=== PATIENT | female | born 1965 | race Caucasian/White ===

== ENCOUNTER → 2018-04-29 08:29 | Outpatient (REF) | payer OTHER, SELFPAY ==
[2018-04-29 12:44] LABS: ALT 21 U/L (12-78); AST 14 U/L (15-37); Albumin 3.8 g/dL (3.4-5.0); Alkaline Phosphatase 54 U/L (46-116); Anion Gap 10.1 mmol/L (3-11); BUN 18 mg/dL (7-18); Bilirubin, Total 0.2 mg/dL (0.2-1.0); CO2 26.9 mmol/L (21.0-32.0); Calcium 8.9 mg/dL (8.5-10.1); Chloride 105 mmol/L (98-107); Cholesterol 161 mg/dL (50-200); Glucose 88 mg/dL (70-100); HDL Cholesterol 41 mg/dL (40-60); LDL CHOLESTEROL 114 mg/dL (<100); Potassium 4.6 mmol/L (3.5-5.1); Sodium 142 mmol/L (136-145); Total Protein 7.2 g/dL (6.4-8.2); Triglyceride 73 mg/dL (30-150)
== END ==
LOC: NCHCN 08:29
PROVIDERS: PCP Family Medicine; Visit Provider Nurse Practitioner
DX: Z00.00 Encounter for general adult medical examination without abnormal findings
CPT/HCPCS: 80053; 80061; 83721

== ENCOUNTER 2019-11-07 11:46 | Outpatient (REF) | payer OTHER, SELFPAY ==
[2019-11-07 19:47] LABS: ALT 24 U/L (14-59); AST 14 U/L (15-37); Albumin 3.9 g/dL (3.4-5.0); Alkaline Phosphatase 60 U/L (46-116); Anion Gap 9.3 mmol/L (3-11); BUN 17 mg/dL (7-18); Bilirubin, Total 0.2 mg/dL (0.2-1.0); CO2 26.7 mmol/L (21.0-32.0); CREATININE 0.68 mg/dL (0.55-1.02); Calcium 9.2 mg/dL (8.5-10.1); Calculated LDL 103 mg/dL (<100); Chloride 104 mmol/L (98-107); Cholesterol 162 mg/dL (<200); Glucose 102 mg/dL (74-106); HDL Cholesterol 38 mg/dL (40-60); Potassium 4.6 mmol/L (3.5-5.1); Sodium 140 mmol/L (136-145); TSH (W/Ref FT4) 2.71 uIU/mL (0.36-3.74); Total Protein 7.1 g/dL (6.4-8.2); Triglyceride 107 mg/dL (<150)
[2019-11-07 20:06] LABS: Vitamin D 25 Total 13.6 ng/ml (30-100)
== END 2019-11-07 12:06 ==
LOC: NCHCN 11:46
PROVIDERS: PCP Family Medicine; Visit Provider Nurse Practitioner
DX: I10 Essential (primary) hypertension (principal); E66.9 Obesity, unspecified; Z13.21 Encounter for screening for nutritional disorder
CPT/HCPCS: 80053; 80061; 82306; 84443

== ENCOUNTER 2020-03-12 01:44 | Outpatient (CLI) | payer OTHER, SELFPAY ==
--- NOTE | 2020-03-12 | DI.MAMMO_ITS ---
EXAM: MG MAMMO SCREENING CLINICAL HISTORY: SCREENING, Z12.39 TECHNIQUE: Bilateral full field digital CC and MLO mammographic images were obtained with 3D tomosyn thesis and utilizing computer aided detection (CAD). COMPARISON: Available for comparison. FINDINGS: Masses/Architectural Distortion: None seen. Microcalcifications: No suspicious pleomorphic-type are seen. Skin Thickening/Nipple Retraction: None. IMPRESSION: 1. No significant interval change with no specific features of malignancy noted. 2. Unless there is more urgent need, screening mammography is recommended, as per [employer] guidelines. BI-RADS Category 1 - Negative Breast Density - Category B - Scattered areas of fibroglandular density A negative radiographic report should not delay biopsy if a dominant or clinically suspicious mass is present. Up to ten percent of cancers are not identified on mammography. A negative report may reinforce clinical impression. Adenosis and dense breasts may obscure an underlying neoplasm. False positive reports average 6 to 10%. Patient will receive a letter notifying them of these results.
== END 2020-03-12 02:04 ==
PROVIDERS: PCP Family Medicine; Visit Provider Nurse Practitioner
DX: Z12.31 Encounter for screening mammogram for malignant neoplasm of breast (principal)
CPT/HCPCS: 77063; 77067

== ENCOUNTER 2020-03-12 12:08 | Outpatient (REF) | payer OTHER, SELFPAY ==
--- NOTE | 2020-03-12 11:15 | PAPFT_PTH ---
PATIENT: Callie Perez LOC: [facility] U#:[id number] AGE/SX: 55/F ROOM: RE03/12/[address]: Shona Bang NP : 1965 BED: DIS: 03/12/2020 SPEC #: [id number] RECD: 03/12/20 12:49 STATUS: FLORIN RECaleb #: [id number] GABBY: 03/12/20 11:[address]: Shona Bang NP DEPT: [facility] [place] Cytology RECD BY: Leah Polanco ENTERED: 03/12/20 12:49 SP TYPE: PAPFT OTHR DR: Nai Mendez Tissues: 1 - CX/ENDOCX FOR PAP SMEARS Procedures: PAP THIN PREP/[facility] Screening Comments: [id number] (CHLAMYDIA/GC) (UNSATISFACTORY FOR EVALUATION)
[2020-03-14 13:25] LABS: Chlamydia Result Negative (Negative); GC Result Negative (Negative)
== END 2020-03-12 12:28 ==
LOC: LBN 12:08
PROVIDERS: PCP Family Medicine; Visit Provider Nurse Practitioner Women's Health
DX: Z11.3 Encounter for screening for infections with a predominantly sexual mode of transmission (principal); Z12.4 Encounter for screening for malignant neoplasm of cervix; Z11.51 Encounter for screening for human papillomavirus (HPV); R87.615 Unsatisfactory cytologic smear of cervix
CPT/HCPCS: 87491; 87591; 88142

== ENCOUNTER 2020-03-13 01:37 | Outpatient (CLI) | payer OTHER, SELFPAY ==
--- NOTE | 2020-03-13 09:58 | DI.RAD_ITS ---
EXAM: 2D digital imaging was performed. CLINICAL HISTORY: ? broken IUD, ?perforation, IUD SURVEILLANCE, Z30.431. COMPARISON: No exams were available for comparison TECHNIQUE: Supine views of the abdomen performed. FINDINGS: There is an intrauterine device seen in the pelvis. There is a curvilinear density inferior to the r ight sacroiliac joint which may be vascular in nature. No definite radiopaque foreign body is seen i n the abdomen. If there is continued concern a CT scan of the abdomen and pelvis may be obtained. T he bowel gas pattern shows no evidence of obstruction. Bones are intact. DATA REPOSITORY: RADIATION DOSE DELIVERED:
== END 2020-03-13 01:57 ==
PROVIDERS: PCP Family Medicine; Visit Provider Nurse Practitioner Women's Health
DX: Z30.431 Encounter for routine checking of intrauterine contraceptive device (principal)
CPT/HCPCS: 74018

== ENCOUNTER 2020-04-24 16:06 | Outpatient (REF) | payer OTHER, SELFPAY ==
--- NOTE | 2020-04-24 15:40 | PAPFT_PTH ---
PATIENT: Callie Perez LOC: [facility] U#:[id number] AGE/SX: 55/F ROOM: RE04/24/[address]: Shona Bang NP : 1965 BED: DIS: 04/24/2020 SPEC #: [id number] RECD: 04/24/20 18:37 STATUS: FLORIN RECaleb #: [id number] GABBY: 04/24/20 15:[address]: Shona Bang NP DEPT: [facility] Cytology RECD BY: Leah Polanco ENTERED: 04/24/20 18:37 SP TYPE: PAPFT OTHR DR: Nai Mendez Tissues: 1 - CX/ENDOCX FOR PAP SMEARS Procedures: PAP THIN PREP/UVM Screening HPV DNA PROBE Comments: [id number]
== END 2020-04-24 16:26 ==
LOC: LBN 16:06
PROVIDERS: PCP Family Medicine; Visit Provider Nurse Practitioner Women's Health
DX: Z12.4 Encounter for screening for malignant neoplasm of cervix (principal); Z11.51 Encounter for screening for human papillomavirus (HPV)
CPT/HCPCS: 88142; 87624

== ENCOUNTER 2020-11-05 21:35 | Outpatient (REF) | payer OTHER, SELFPAY ==
[2020-11-05 19:10] LABS: ALT 29 U/L (14-59); AST 17 U/L (15-37); Albumin 3.7 g/dL (3.4-5.0); Alkaline Phosphatase 58 U/L (46-116); Anion Gap 9.8 mmol/L (3-11); BUN 16 mg/dL (7-18); Bilirubin, Total 0.2 mg/dL (0.2-1.0); CO2 28.2 mmol/L (21.0-32.0); CREATININE 0.7 mg/dL (0.55-1.02); Calcium 9.4 mg/dL (8.5-10.1); Calculated LDL 121 mg/dL (<100); Chloride 103 mmol/L (98-107); Cholesterol 174 mg/dL (<200); Glucose 97 mg/dL (74-106); HDL Cholesterol 35 mg/dL (40-60); Potassium 3.8 mmol/L (3.5-5.1); Sodium 141 mmol/L (136-145); Total Protein 7.6 g/dL (6.4-8.2); Triglyceride 92 mg/dL (<150)
[2020-11-05 19:26] LABS: Vitamin D 25 Total 22.7 ng/ml (30-100)
[2020-11-05 19:31] LABS: Hemoglobin A1C 6.3 % (<5.7)
== END 2020-11-05 21:36 | disposition home or self-care (01) ==
LOC: NCHCN 21:35
PROVIDERS: PCP Family Medicine; Visit Provider Nurse Practitioner
DX: R73.03 Prediabetes (principal); E55.9 Vitamin D deficiency, unspecified; I10 Essential (primary) hypertension
CPT/HCPCS: 80053; 80061; 82306; 83036

== ENCOUNTER 2021-01-08 03:39 | Outpatient (CLI) | payer OTHER, SELFPAY ==
[2021-01-08] MEDS: Albuterol HFA 18 GM 200 PUFF INH IH (11:39)
[2021-01-08] MEDS: Inhaler, Assist Device 1 EACH MC (11:40)
--- NOTE | 2021-01-09 12:55 | W.PFT ---
Date of service: 01/08/21 Time of Service: 10:21 Pulmonary Function Test Result Interpretation Spirometry: Mild obstructive airways disease, no bronchodilator response Lung Volumes: No evidence of restriction. Mild hyperinflation Diffusion Capacity: Mildly reduced even when corrected to alveolar volume Airway Pressure: Elevated Impression Mild obstructive airways disease with no significant bronchodilator response this is associated with mild hyperinflation and mild diffusion defect. There is elevated airways resistance Clinical Correlation therefore is recommended.
== END 2021-01-08 03:40 | disposition home or self-care (01) ==
PROVIDERS: PCP Family Medicine; Visit Provider Nurse Practitioner
DX: R05 Cough (principal); Z86.16 Personal history of COVID-19; R06.09 Other forms of dyspnea
CPT/HCPCS: 94060; 94726; 94729

== ENCOUNTER 2021-04-15 00:55 | Outpatient (CLI) | payer OTHER, SELFPAY ==
--- NOTE | 2021-04-15 | DI.MAMMO_ITS ---
Exam(s) MAMMO SCREENING EXAM: MAMMO SCREENING CLINICAL HISTORY: SCREENING, Z12.39. TECHNIQUE: Bilateral full field digital CC and MLO mammographic images were obtained with 3D tomosyn thesis and utilizing computer aided detection (CAD). COMPARISON: Prior mammograms dating back to 2014, the most recent being February 2020. Her sister was diagnosed with breast cancer at age 50. FINDINGS: There are no CAD designations There are no new spiculated masses nor malignant appearing microcalcification groups. There is no significant architectural distortion nor skin thickening-retraction. IMPRESSION: No radiographic evidence of malignancy. BI-RADS Category 1 - Negative Breast Density - Category B - Scattered areas of fibroglandular density Breast density Category C or D implies that the patient has dense breast tissue. Dense breast tissue can make it harder to find cancer on a mammogram. Dense breast tissue is also associated with an incr eased risk of breast cancer. This information about the result of the mammogram report was provided to the patient to raise their awareness. Use this report when you speak with the patient about their risks for breast cancer, which includes their family history. At that time, you may recommend additional screening tests (Ultrasoun d or MRI) as these tests may add significant information. A negative radiographic report should not delay biopsy if a dominant or clinically suspicious mass is present. Up to ten percent of cancers are not identified on mammography. A negative report may reinforce clinical impression. Adenosis and dense breasts may obscure an underlying neoplasm. False positive reports average 6 to 10%. Patient will receive a letter notifying them of these results.
== END 2021-04-15 01:15 ==
PROVIDERS: PCP Family Medicine; Visit Provider Nurse Practitioner
DX: Z12.31 Encounter for screening mammogram for malignant neoplasm of breast (principal)
CPT/HCPCS: 77063; 77067

== ENCOUNTER 2021-09-20 18:45 | Outpatient (REF) | payer BC, SELFPAY ==
[2021-09-20 21:28] LABS: Anion Gap 7.1 mmol/L (3-11); BUN 15 mg/dL (7-18); CO2 30.9 mmol/L (21.0-32.0); CREATININE 0.9 mg/dL (0.55-1.02); Calcium 9.6 mg/dL (8.5-10.1); Chloride 100 mmol/L (98-107); Glucose 94 mg/dL (74-106); Potassium 3.5 mmol/L (3.5-5.1); Sodium 138 mmol/L (136-145); TSH (W/Ref FT4) 1.98 uIU/mL (0.36-3.74)
[2021-09-23 10:05] LABS: Hepatitis C Ab w Rflx HCV PCR Negative (Negative)
[2021-09-23 10:21] LABS: HIV-1/2 Ag & Ab Screen Negative (Negative)
== END 2021-09-20 18:46 | disposition home or self-care (01) ==
LOC: NCHCN 18:45
PROVIDERS: PCP Family Medicine; Visit Provider Family Medicine
DX: I10 Essential (primary) hypertension (principal); R73.03 Prediabetes; Z00.00 Encounter for general adult medical examination without abnormal findings; Z11.4 Encounter for screening for human immunodeficiency virus [HIV]; Z11.59 Encounter for screening for other viral diseases
CPT/HCPCS: 80048; 86803; 87389; 83036; 84443

== ENCOUNTER 2021-10-22 18:56 | Outpatient (REF) | payer BC, SELFPAY ==
[2021-10-22 20:30] LABS: Anion Gap 9.1 mmol/L (3-11); BUN 17 mg/dL (7-18); CO2 29.9 mmol/L (21.0-32.0); CREATININE 0.8 mg/dL (0.55-1.02); Calcium 9.7 mg/dL (8.5-10.1); Chloride 100 mmol/L (98-107); Glucose 86 mg/dL (74-106); Potassium 3.4 mmol/L (3.5-5.1); Sodium 139 mmol/L (136-145)
== END 2021-10-22 18:57 | disposition home or self-care (01) ==
LOC: LBN 18:56
PROVIDERS: PCP Family Medicine; Visit Provider Family Medicine
DX: I10 Essential (primary) hypertension (principal)
CPT/HCPCS: 80048

== ENCOUNTER 2021-12-17 17:36 | Outpatient (REF) | payer BC, SELFPAY ==
[2021-12-17 17:32] LABS: BUN 19 mg/dL (7-18); CREATININE 0.7 mg/dL (0.55-1.02); Calcium 9.5 mg/dL (8.5-10.1); Chloride 103 mmol/L (98-107); Glucose 108 mg/dL (74-106); Sodium 142 mmol/L (136-145)
== END 2021-12-17 17:37 | disposition home or self-care (01) ==
LOC: NCHCN 17:36
PROVIDERS: PCP Family Medicine; Visit Provider Family Medicine
DX: E87.6 Hypokalemia (principal)
CPT/HCPCS: 80048

== ENCOUNTER → 2022-06-25 00:56 | Outpatient (CLI) | payer BC, SELFPAY ==
--- NOTE | 2022-06-25 17:00 | DI.MAMMO_ITS ---
Exam(s) MAMMO SCREENING EXAM: MAMMO SCREENING CLINICAL HISTORY: SCREENING, Z12.39 TECHNIQUE: Mammograms were interpreted according to the usual protocol including computer analysis w [employer] CAD system, tomosynthesis and C-view imaging. COMPARISON: FINDINGS: The breasts are of moderate density with fairly symmetrical distribution of fibroglandular tissue. N o dominant mass or clumped microcalcification is identified in either breast. The current examinatio n is compared with previous examinations including April 2021 and there has been no gross interval c hange in appearance in comparison with the prior studies. IMPRESSION: No specific evidence of malignancy at this time. Routine screening examinations are suggested at yea rly intervals due to the family history of breast carcinoma. BI-RADS Category 1 - Negative Breast Density - Category B - Scattered areas of fibroglandular density
== END ==
PROVIDERS: PCP Family Medicine; Visit Provider Nurse Practitioner Family
DX: Z12.31 Encounter for screening mammogram for malignant neoplasm of breast (principal)
CPT/HCPCS: 77063; 77067

== ENCOUNTER 2022-07-25 07:44 | Day surgery (SDC) | payer BC, SELFPAY ==
--- NOTE | 2022-07-25 06:29 | HPE_ITS ---
Assessment and Plan Assessment and plan (1) Encounter for colorectal cancer screening: Status: Acute Assessment and plan: Ms Perez is a pleasant 57-year-old female who was seen in the office for a screening colonoscopy. She denies any melena, hematochezia, abdominal pain, unintentional weight loss, change in bowel habits or family history of colon cancer. Risks, benefits and complications have been reviewed. Complications include but are not limited to bleeding, pain, perforation, missed small lesion/polyp, sore throat, aspiration and adverse reaction to the medications. Questions were entertained and answered to their satisfaction and they wished to proceed. No guarantees were given or implied. Proceed with colonoscopy under sedation History of Present Illness Narrative: Pt seen at the request of PCP regarding colon cancer screening. Pt has never had a colon cancer screening before.? Denies problems with constipation, diarrhea.? No pain or difficulty with bowel movements.? Denies rectal bleeding.? There is no family history of any colon cancer. Sister had polyps.? ? Pt has not had any weight loss.? Their appetite is good.? No heart, lung, or kidney problems. Occ. ? heartburn or indigestion. No prior colo-rectal surgery.? No prior SAFIA.? No problems with anesthesia in the past. Review of Systems All systems reviewed & are unremarkable except as noted in HPI and below PFSH All Active Problems Encounter for colorectal cancer screening (Acute) Depression (Chronic) BMI 40.0-44.9, adult (Acute) Vitamin D deficiency (Acute) Prediabetes (Acute) Hypertension (Chronic) Migraine (Chronic) IUD surveillance (Acute 03/12/20) Mirena Medical History Allergic rhinitis Family history of breast cancer Pain in left wrist Surgical History [place] teeth removed Family History Sister Breast cancer Thyroid disease Mother Diabetes Social History Smoking/Tobacco Use Status: Former Tobacco Use Quit Date: 09/14/79 Smoking risk assessment performed?: Yes Alcohol Intake: current Alcohol Intake frequency: holidays/special occasions only Alcohol type: beer and wine Drug use: Never Substance use type: does not use Do you feel safe at home: Yes Do you feel safe in your relationship?: Yes Female Reproductive History Menstrual control method: progestin IUCD History History 2 Para 1 Hx # Term Pregnancies Multiple births Hx # Pregnancies Ectopic pregnancies AB induced Hx Number of Living Children AB spontaneous Meds Allergies and Home Medications Allergies Allergy/AdvReac Type Severity Reaction Status Date / Time No Known Allergies Allergy Verified 07/25/22 08:04 Home Medications Medication Instructions Recorded Confirmed Type cholecalciferol (vitamin D3) 100 100 mcg PO DAILY 03/12/20 07/25/22 History mcg (4,000 unit) tablet levonorgestrel 20 mcg/24 hours (8 1 device intrauterine ONCE 03/12/20 07/23/22 History yrs) 52 mg intrauterine device (Mirena) cetirizine 10 mg capsule (All Day 10 mg PO DAILY PRN 10/31/21 07/25/22 History Allergy (cetirizine)) chlorthalidone 25 mg tablet 25 mg PO DAILY 10/31/21 07/25/22 History citalopram 20 mg tablet 20 mg PO DAILY 10/31/21 07/25/22 History losartan 100 mg tablet 100 mg PO HS 10/31/21 07/25/22 History sumatriptan succinate 100 mg 100 mg PO ONCE 10/31/21 07/25/22 History tablet (Imitrex) bisacodyl 5 mg tablet,delayed 5 mg PO ONCE colonscopy bowel prep 06/23/22 07/25/22 Rx release (Dulcolax (bisacodyl)) #4 tabs omeprazole 20 mg capsule,delayed 20 mg PO DAILY PRN 06/23/22 07/25/22 History release polyethylene glycol 3350 17 238 g PO ONCE colonoscopy prep 06/23/22 07/25/22 Rx gram/dose oral powder #238 grams Exam HENMT Head: normocephalic and atraumatic Resp Effort & Inspection: normal respiratory effort Auscultation: clear to auscultation bilaterally Cardio Rate: regular rate Rhythm: regular rhythm
--- NOTE | 2022-07-25 06:29 | W.COLOREPORT ---
Date of service: 07/25/22 Time of Service: : Colonoscopy Report Date of procedure: 07/25/22 Pre-op diagnosis general: colon cancer screening Post-op diagnosis procedure note: other (polyps and diverticulosis) Procedure: Colonoscopy with polypectomy Surgeon: Em Carpenter Anesthesia Type: General:No Airway Estimated blood loss (mL): 3 Pathology: other (cecal polyp, ascending polyp and descending polyp) Complications: None Disposition: same day Indications: Ms Perez is a pleasant 57-year-old female who was seen in the office for a screening colonoscopy. She denies any melena, hematochezia, abdominal pain, unintentional weight loss, change in bowel habits or family history of colon cancer. Risks, benefits and complications have been reviewed. Complications include but are not limited to bleeding, pain, perforation, missed small lesion/polyp, sore throat, aspiration and adverse reaction to the medications. Questions were entertained and answered to their satisfaction and they wished to proceed. No guarantees were given or implied. Proceed with colonoscopy under sedation Prep: Miralax/Dulcolax Procedure Start Time: :20 Procedure End Time: :37 Retraction Time: 13 minutes Findings: 3 small polyps moderate diverticulosis Procedure Description: After informed consent was obtained the patient was taken to the procedure room and placed in a left decubitous position. Monitors were applied and a time out was done. The patients name, date of , procedure, allergies to medications and metal in their body was reviewed. The patient was then sedated. Once sedated and comfortable a rectal exam was done. External exam was normal. Internal exam revealed a normal sphincter tone and no palpable masses. The scope was then introduced and retro-flexed. No internal hemorrhoids, polyps or masses were identified on retro-flexion. The scope was then advanced to the cecum without difficulty. The ileocecal vlave and appendiceal orifice were identified. The prep was good. The scope was then slowly retracted over 13 minutes back into the rectum. Polyps were removed with cold forceps in the cecum, ascending colon and descending colon. There was moderate descending and sigmoid diverticulosis noted. The scope was removed and the patient was woken up and taken back to Same day surgery in stable condition. The patient tolerated the procedure well and there were no immediate complications.
--- NOTE | 2022-07-25 06:34 | W.PM.DSUDISC ---
Date of service: 07/25/22 Time of Service: 09:20 Discharge Plan Disposition Patient Disposition: HOME Condition: Good Discharge Details Reason For Visit: colonoscopy Attending Provider: Em Carpenter Primary Care Provider: TANESHA CROWLEY Home Meds and New Rx's Prescriptions: Continued cholecalciferol (vitamin D3) 100 mcg (4,000 unit) tablet 100 mcg PO DAILY Mirena 20 mcg/24 hours (5 yrs) 52 mg intrauterine device 1 device IY ONCE Rx Instructions: as a single dose losartan 100 mg tablet 100 mg PO HS chlorthalidone 25 mg tablet 25 mg PO DAILY All Day Allergy (cetirizine) 10 mg capsule 10 mg PO DAILY PRN citalopram 20 mg tablet 20 mg PO DAILY sumatriptan succinate [Imitrex] 100 mg tablet 100 mg PO ONCE omeprazole 20 mg capsule,delayed release(DR/EC) 20 mg PO DAILY PRN Discontinued polyethylene glycol 3350 17 gram/dose powder 238 g PO ONCE Qty: 238 0RF Rx Instructions: take per colonoscopy instructions bisacodyl [Dulcolax (bisacodyl)] 5 mg tablet,delayed release (DR/EC) 5 mg PO ONCE Qty: 4 0RF Rx Instructions: take per colonoscopy instructions Discharge Instructions Instructions: Colorectal Polyps (DC), Diverticulosis (DC) Additional Instructions: Findings: 3 small polyps Diverticulosis Follow up: most likely 5 years Please call if you develop: fevers >101.5 Nausea or Vomiting Abdominal pain that is not transient Rectal bleeding that is more then a tbsp A hard abdomen and inability to pass gas DAY SURGERY UNIT POST ENDOSCOPY INSTRUCTIONS Instructions for everyone who is given Anesthesia: For your safety, please do the following for the next 24 Hours: a. Do not drive or operate dangerous equipment b. Do not drink alcohol beverages or use any recreational drugs for the first 24 hours or while taking pain medications. The medications in your body may have a reaction that can be dangerous. c. Do not make any important decisions or sign any important papers 1. Generally there are no restrictions on your activity after a day or so has gone by, but you may feel a bit fatigued for a few days. 2. After you arrive home you may have a light meal and return to a normal diet as you can tolerate it without feeling sick to your stomach. 3. After surgery, you may feel pain or discomfort. This should be only transient, but if it persists please contact your doctor. 4. If there are any questions regarding the findings of your procedure, please feel free to contact your doctor. 6. If you are unable to contact your doctor with a problem, contact the hospital at [phone]. 7. Continue all your regular medications unless directed otherwise. I understand the above instructions and have no questions. Signature of Patient or Responsible Adult Escort Date/Time Name of Responsible Adult Escort Signature of Nurse Date/Time Activity:: Activity as Tolerated Diet:: high fiber Discharge Orders Discharge Orders: Discharge Order (Routine); Ordered 07/25/22 Ordered By: Em Carpenter DS: Diagnosis Discharge Diagnosis (1) Encounter for colorectal cancer screening: Status: Acute
[2022-07-25 08:13] VITALS: BP 156/89; PULSE 95; RESP 18; TEMP 36.4; O2SAT 96
--- NOTE | 2022-07-25 08:34 | ANES.PREOP_ITS ---
General Info Date of Service Date Performed: 07/25/22 Height: 5 ft 11 in Weight: 154.9 kg Body Mass Index (BMI): 47.6 Surgical Procedure: Operation Date: 07/25/22 09:05 Proposed Procedure Side Surgeon p Colonoscopy Em Carpenter MD Meds Allergies and Home Medications Allergies Allergy/AdvReac Type Severity Reaction Status Date / Time No Known Allergies Allergy Verified 07/25/22 08:04 Home Medication Medication Instructions Recorded cholecalciferol (vitamin D3) 100 100 mcg PO DAILY 03/12/20 mcg (4,000 unit) tablet levonorgestrel 20 mcg/24 hours (8 1 device intrauterine ONCE 03/12/20 yrs) 52 mg intrauterine device (Mirena) cetirizine 10 mg capsule (All Day 10 mg PO DAILY PRN 10/31/21 Allergy (cetirizine)) chlorthalidone 25 mg tablet 25 mg PO DAILY 10/31/21 citalopram 20 mg tablet 20 mg PO DAILY 10/31/21 losartan 100 mg tablet 100 mg PO HS 10/31/21 sumatriptan succinate 100 mg 100 mg PO ONCE 10/31/21 tablet (Imitrex) bisacodyl 5 mg tablet,delayed 5 mg PO ONCE colonscopy bowel prep 06/23/22 release (Dulcolax (bisacodyl)) #4 tabs omeprazole 20 mg capsule,delayed 20 mg PO DAILY PRN 06/23/22 release polyethylene glycol 3350 17 238 g PO ONCE colonoscopy prep 06/23/22 gram/dose oral powder #238 grams Current Visit Medications: Current Medications Generic Name Dose Route Start Last Admin Trade Name Braydonq PRN Reason Stop Dose Admin Hyoscyamine Sulfate 0.125 mg 07/25/22 06:35 Hyoscyamine 0.125 Mg Sl/Oral/Chew SL DIRECTED PRN Ringer's Solution 1,000 mls @ 80 mls/hr 07/25/22 06:00 IV 08/23/22 23:59 [facility] IV Miscellaneous Supplies 1 each 07/25/22 06:00 Iv Access IV 08/23/22 23:59 DIRECTED [facility] Ondansetron HCl 4 mg 07/25/22 06:35 Ondansetron 4 Mg/2 Ml Vial IVP Q4H PRN PRN Nausea / Vomiting Sodium Chloride 0 ml 07/25/22 06:00 Normal Saline Flush 10 Ml Syr IV 08/23/22 23:59 PRN PRN Sodium Chloride 0 ml 07/25/22 06:00 Normal Saline 10 Ml Vial IJ 08/23/22 23:59 DIRECTED PRN Sterile Water 0 ml 07/25/22 06:00 Water,Injection,Sterile 10 Ml Vial IJ 08/23/22 23:59 DIRECTED PRN PFSH Active Problems Active Problems: Problem Status Onset Code Encounter for colorectal cancer screening Z12.11, Z12.12 Depression F32.A BMI 40.0-44.9, adult Z68.41 Vitamin D deficiency E55.9 Prediabetes R73.03 Hypertension I10 Migraine G43.909 IUD surveillance 03/12/20 Z30.431 Medical History Medical History Allergic rhinitis Family history of breast cancer Pain in left wrist Surgical History Surgical History [place] teeth removed Tobacco Smoking/Tobacco Use Status: Former Tobacco Use Alcohol Alcohol Intake: current Alcohol intake frequency: holidays/special occasions only Alcohol type: beer and wine Substance Use Substance use: Never Substance use type: does not use Prental History History 2 Para 1 Hx # Term Pregnancies Multiple births Hx # Pregnancies Ectopic pregnancies AB induced Hx Number of Living Children AB spontaneous Vital Signs and Lab Results Vital Signs Most Recent Vital Signs in EMR: Most Recent Vital Signs Temp Pulse Resp BP Pulse Ox 36.4 C L 95 H 18 156/89 H 96 07/25/22 08:13 07/25/22 08:13 07/25/22 08:13 07/25/22 08:13 07/25/22 08:13 Lab Results Blood Type / Crossmatch: No Data to Display Complete Blood Count: No Data to Display Complete Metabolic Panel: No Data to Display Liver Function Panel: No Data to Display Coagulation Panel: No Data to Display Cardiac Panel: No Data to Display Arterial Blood Gas: No Data to Display Venous Blood Gas: No Data to Display Pancreas Panel: No Data to Display Thyroid Panel: No Data to Display Infectious Disease: No Data to Display Blood Cultures: No Data to Display Toxicology Panel: No Data to Display Anesthesia Assessment and Plan Anesthesia History Personal History: No History of Anesthesia Complications Family History: No Family History of Anesthesia Complications Exercise Tolerance Exercise Tolerance: Metabolic Equivalents>4 Pertinent Negatives Pertinent Negatives: No Symptoms of GERD Cardiac & Pulmonary Exam Cardiac Exam: Normal S1/S2 Heart Sounds Pulmonary Exam: Clear Bilateral Breath Sounds Implantable Cardiac Device Does patient have a Pacemaker or an ICD?: No Airway Exam Known Difficult Airway: No Mallampati Class: 4 Mouth Opening: Normal (> 3cm) Thyromental Distance: Greater than 3 cm Neck Range of Motion: Full ROM Neck Circumference: Thick Teeth Condition: Normal Dentition ASA Classification ASA Score: ASA 3 Emergency Case?: No NPO Status NPO Status: NPO Clears >2 hours, Solids >8 hours Anesthesia Plan Resuscitation Status: Full Code Anesthesia Technique: General Anesthesia Airway Planned: Natural Airway Monitors Used: Standard Monitors
[2022-07-25 08:56] VITALS: BMI 47.6
[2022-07-25] MEDS: Lactated Ringers 1,000 ML 80 ML IV (09:13)
--- NOTE | 2022-07-25 09:26 | BOWEL_PTH ---
PATIENT: Callie Perez LOC: [facility] U#:[id number] AGE/SX: 57/F ROOM: RE07/25/[address]: Em Carpenter MD : 1965 BED: DIS: 07/25/2022 SPEC #: [id number] RECD: 07/25/22 12:51 STATUS: FLORIN REaCleb #: [id number] GABBY: 07/25/22 09:[address]: Em Carpenter DEPT: Surgical Specimen RECD BY: Leah Polanco ENTERED: 07/25/22 12:52 SP TYPE: Bowel OTHR DR: TANESHA CROWLEY, CONTACT LENS FLASHING PUNCHER Tissues: 1 - BIOPSY BOWEL 2 - BIOPSY BOWEL 3 - BIOPSY BOWEL Procedures: GROSS AND MICRO LEVEL 4 Comments: [id number]
[2022-07-25 09:48] VITALS: BP 109/54; PULSE 81; RESP 18; TEMP 36.9; O2SAT 93
--- NOTE | 2022-07-25 10:10 | W.ANESPOSTOP ---
Postoperative Evaluation Date, Time and Location Date Performed: 07/25/22 Time Performed: 09:55 Patient Location: Emergency Department Vital Signs Most Recent Imported Vital Signs: Most Recent Vital Signs Temp Pulse Resp BP Pulse Ox 36.9 C 81 18 109/54 L 93 07/25/22 09:48 07/25/22 09:48 07/25/22 09:48 07/25/22 09:48 07/25/22 09:48 Pain Score Most Recent Pain Score: Most Recent Pain Score Pain Level 0 07/25/22 09:48 Assessment Mental Status: Awake (Alert & Oriented to Patient Baseline) Airway and Respiratory Function: Patent airway with normal (patient baseline) respiratory exam Cardiovascular Function: Hemodynamically Stable Hydration Status: Adequately Hydrated Nausea & Vomiting: No Nausea or Vomiting Pain: Pt. Denies Any Pain Peripheral Nerve Block: Patient did not receive a nerve block
[2022-07-25 10:15] VITALS: BP 128/89; PULSE 77; RESP 16; TEMP 36; O2SAT 96
== END 2022-07-25 10:39 | disposition home or self-care (01) ==
PROVIDERS: PCP Nurse Practitioner Family; Visit Provider Surgery
PROC: 0DJD8ZZ Inspection of Lower Intestinal Tract, Via Natural or Artificial Opening Endoscopic (ICD-10-PCS; CPT 45378; principal; 2022-07-25 09:00)
DX: Z12.11 Encounter for screening for malignant neoplasm of colon (principal); K63.5 Polyp of colon; K57.30 Diverticulosis of large intestine without perforation or abscess without bleeding
CPT/HCPCS: 45380; 88305; J2704

== ENCOUNTER 2022-08-14 16:19 | Outpatient (REF) | payer BC, SELFPAY ==
[2022-08-14 18:24] LABS: Abs Immature Grans 0.02 10^3/uL (0.0-0.06); Absolute Basophil Count 0.04 10^3/uL (0.0-0.2); Absolute Eosinophil Count 0.14 10^3/uL (0.0-0.7); Absolute Lymphocyte Count 1.98 10^3/uL (1.2-3.4); Absolute Monocyte Count 0.57 10^3/uL (0.1-0.8); Absolute Neutrophil Count 4.22 10^3/uL (1.2-6.7); Basophils % 0.6; HCT 42.9 % (36.0-46.0); HGB 14.1 g/dL (11.2-15.7); Immature Grans % 0.3; Lymphocytes % 28.4; MCH 27.9 pg (27.0-33.0); MCHC 32.9 % (32.0-36.0); MCV 85 fL (80-95); Monocytes % 8.2; Neutrophils % 60.5; Platelet Count 266 10^3/uL (130-400); RBC 5.05 10^6/uL (3.93-5.22); RDW 13.6 % (11.7-14.6); WBC 6.97 10^3/uL (4.4-10.8)
[2022-08-14 18:40] LABS: Hemoglobin A1C 6.3 % (<5.7)
[2022-08-14 19:05] LABS: Vitamin D 25 Total 22.8 ng/mL (30-100)
[2022-08-14 19:08] LABS: ALT 26 U/L (14-59); AST 21 U/L (15-37); Albumin 3.8 g/dL (3.4-5.0); Alkaline Phosphatase 67 U/L (46-116); Anion Gap 5.9 mmol/L (3-11); BUN 19 mg/dL (7-18); Bilirubin, Total 0.3 mg/dL (0.2-1.0); CO2 32.1 mmol/L (21.0-32.0); CREATININE 0.8 mg/dL (0.55-1.02); Calcium 9.7 mg/dL (8.5-10.1); Calculated LDL 125 mg/dL (<100); Chloride 100 mmol/L (98-107); Cholesterol 183 mg/dL (<200); Estimated GFR 86.96 (mL/min/1.73m2); Glucose 92 mg/dL (74-106); HDL Cholesterol 39 mg/dL (40-60); Potassium 3.3 mmol/L (3.5-5.1); Sodium 138 mmol/L (136-145); TSH (W/Ref FT4) 1.97 uIU/mL (0.36-3.74); Total Protein 7.4 g/dL (6.4-8.2); Triglyceride 95 mg/dL (<150); Vitamin B12 317 pg/mL (193-986)
== END 2022-08-14 16:20 | disposition home or self-care (01) ==
LOC: NCHCN 16:19
PROVIDERS: PCP Nurse Practitioner Family; Visit Provider Nurse Practitioner Family
DX: I10 Essential (primary) hypertension (principal); R73.03 Prediabetes; E55.9 Vitamin D deficiency, unspecified; F41.8 Other specified anxiety disorders; J30.2 Other seasonal allergic rhinitis; Z68.41 Body mass index [BMI] 40.0-44.9, adult
CPT/HCPCS: 80053; 80061; 82306; 82607; 83036; 84443; 85025

== ENCOUNTER 2023-02-04 17:34 | Outpatient (REF) | payer BC, SELFPAY ==
[2023-02-04 19:47] LABS: Bilirubin Negative (Negative); Blood Negative (Negative); Clarity Clear (Clear); Glucose Negative (Negative); Ketones Trace mg/dL (Negative); Leukocyte Esterase Negative (Negative); Nitrite Negative (Negative); Urobilinogen 0.2 mg/dL (Up to 0.2)
== END 2023-02-04 17:35 | disposition home or self-care (01) ==
LOC: NCHCN 17:34
PROVIDERS: PCP Nurse Practitioner Family; Visit Provider Nurse Practitioner Family
DX: R82.998 Other abnormal findings in urine (principal); M54.9 Dorsalgia, unspecified
CPT/HCPCS: 81003

== ENCOUNTER → 2023-06-13 12:41 | Outpatient (REF) | payer OTHER, SELFPAY ==
--- NOTE | 2023-06-13 13:15 | DI.RAD_ITS ---
Exam(s) XR WRIST LT COMPLETE EXAM: XR WRIST LT COMPLETE CLINICAL HISTORY: evaluate fx. TECHNIQUE: 2D digital imaging was performed. COMPARISON: No exams were available for comparison FINDINGS: 3 views No fracture or dislocation nor significant ulnar variance. Scapholunate distance normal. Scaphoid u nremarkable. Scaphoid unremarkable. No degenerative changes in the carpal row bones. IMPRESSION: No acute findings in the wrist. DATA REPOSITORY: RADIATION DOSE DELIVERED:
--- NOTE | 2023-06-13 13:15 | DI.RAD_ITS ---
Exam(s) XR KNEE LT 4V AP,LAT,ASHWINI,PAT EXAM: XR KNEE LT 4V AP,LAT,ASHWINI,PAT CLINICAL HISTORY: evaluate pathology. TECHNIQUE: 2D digital imaging was performed. COMPARISON: No exams were available for comparison FINDINGS: Five views. No evidence of acute fracture nor prominent joint effusion. The does appear to be small amount of in creased joint fluid in the suprapatellar bursa seen on the lateral view. There is moderate narrowing of the medial compartment. Mild narrowing of the lateral compartment. M arginal osteophytes in both compartments. Patellofemoral compartment unremarkable. IMPRESSION: No acute findings. DATA REPOSITORY: RADIATION DOSE DELIVERED:
--- NOTE | 2023-06-13 14:32 | DI.VRAD_ITS ---
PROCEDURE INFORMATION: Exam: XR Left Knee Exam date and time: 06/13/2023 1:46 PM Age: 58 years old Clinical indication: Pain; Knee; Left TECHNIQUE: Imaging protocol: Radiologic exam of the left knee. Views: 4 or more views. COMPARISON: No relevant prior studies available. 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 No fracture or bony destructive lesion. Soft tissues: Normal. IMPRESSION: No acute findings. Dictated and Authenticated by: iNck Hernandes MD. Ordering:JERALD Alejandra MD
--- NOTE | 2023-06-13 14:32 | DI.VRAD_ITS ---
PROCEDURE INFORMATION: Exam: XR Left Wrist Exam date and time: 06/13/2023 1:51 PM Age: 58 years old Clinical indication: Pain; Wrist; Left TECHNIQUE: Imaging protocol: Radiologic exam of the left wrist. Views: 3 or more views. COMPARISON: No relevant prior studies available. FINDINGS: Bones/joints: Normal. Soft tissues: Normal. IMPRESSION: No acute findings. Dictated and Authenticated by: Nick Hernandes MD. Ordering:JERALD Alejandra MD
== END ==
LOC: DI 12:41
PROVIDERS: PCP Nurse Practitioner Family; Visit Provider Nurse Practitioner Family
DX: M25.562 Pain in left knee (principal); M25.532 Pain in left wrist
CPT/HCPCS: 73110; 73564

== ENCOUNTER 2023-07-11 06:44 | Inpatient (IN) | payer BC, SELFPAY ==
[2023-07-11] VITALS (139 sets, daily range): BP systolic 121–184; BP diastolic 37–78; PULSE 90–113; RESP 16–35; TEMP 37.5–40; O2SAT 90–96
--- NOTE | 2023-07-11 06:45 | RT.EKG_ITS ---
APPROVED REPORT Exam: Resting ECG Reason for Exam: tachy Patient Location: E HR:110 bpm ECG Measurements Heart Rate 110 AXIS PA 136 P 41 QRSd 87 QRS 38 QT 389 T 54 QTc 525 Conclusion sinus tach [address] depression, no acute ischemic change, no priors for comparison QT long
--- NOTE | 2023-07-11 07:10 | ED.GENADUL_ITS ---
Discharge Plan Discharge Details Chief Complaint: GenMedical Primary Care Provider: TANESHA CROWLEY ED Provider: Yosef Turner Home Meds and New Rx's Prescriptions: No Action cholecalciferol (vitamin D3) 100 mcg (4,000 unit) tablet 100 mcg PO DAILY Mirena 20 mcg/24 hours (5 yrs) 52 mg intrauterine device 1 device IY ONCE Rx Instructions: as a single dose losartan 100 mg tablet 100 mg PO HS chlorthalidone 25 mg tablet 25 mg PO DAILY All Day Allergy (cetirizine) 10 mg capsule 10 mg PO DAILY PRN citalopram 20 mg tablet 20 mg PO DAILY omeprazole 20 mg capsule,delayed release(DR/EC) 20 mg PO DAILY PRN Medical Decision Making Emergent evaluation of acute febrile illness. Initial differential includes sepsis, pneumonia, viral illness. Patient is noted to be hypoxic. She reports a history of long COVID, but does not have any further details or history of oxygen dependence. Her lungs sound clear at this time. She has no history of heart failure. Initial plan for sepsis work-up including cultures and empiric antibiotics 0725: Lactic acid elevated at 3.1. IV fluids ordered. W will use ideal body weight of 70 kg to calculate appropriate fluid dosing 1000: Remaining labs reviewed. Potassium low, IV replacement ordered. Creatinine slightly elevated, but this is baseline for the patient. Procalcitonin is 3. WBC 15. Will be admitted to the hospital for further management of sepsis. At this time I do not have a source. Viral testing negative. Chest x-ray read by [facility] as normal, though I appreciated a right basilar infiltrate. Urinalysis without infection. discussed with hospitalist who will place orders. Medical Records Medical records reviewed: Yes I reviewed the patient's medical records. Lab Data Lab results reviewed: Yes I reviewed the patient's lab results. ECG Data Attestation: I personally reviewed and interpreted this ECG (s) as follows: Prior ECG tracings: not available for review Interpretation: sinus tach [address] depression, no acute ischemic change, no priors for comparison QT long HPI General Date/Time Provider Initiated Documentation: 07/11/23 06:48 . Limitations to Documentation: no limitations . Information obtained by: patient . HPI Narrative: 58-year-old female with past medical history of depression, hypertension, obesity, prediabetes presents for evaluation of fever and chills. Reports that symptoms started throughout the night. She did not measure fever. She reports that she has had shaking chills and unable to get warm. She reports that she has had a cough for several days. She describes this as her long COVID cough. She does not use oxygen at home. Denies any nausea, vomiting, chest pain or abdominal pain. No known sick contacts. States that she felt fine yesterday before going to bed. Related Data Home Medications Medication Instructions Recorded Confirmed cholecalciferol (vitamin D3) 100 100 mcg PO DAILY 03/12/20 07/11/23 mcg (4,000 unit) tablet levonorgestrel 21 mcg/24 hours (8 1 device intrauterine ONCE 03/12/20 07/11/23 yrs) 52 mg intrauterine device (Mirena) cetirizine 10 mg capsule (All Day 10 mg PO DAILY PRN 10/31/21 07/11/23 Allergy (cetirizine)) chlorthalidone 25 mg tablet 25 mg PO DAILY 10/31/21 07/11/23 citalopram 20 mg tablet 20 mg PO DAILY 10/31/21 07/11/23 losartan 100 mg tablet 100 mg PO HS 10/31/21 07/11/23 omeprazole 20 mg capsule,delayed 20 mg PO DAILY PRN 06/23/22 07/11/23 release Allergies Allergy/AdvReac Type Severity Reaction Status Date / Time No Known Allergies Allergy Verified 07/11/23 06:59 General Stated Complaint: GenMedical SHANT: 3 PFSH All Active Problems Encounter for colorectal cancer screening (Acute) Depression (Chronic) BMI 40.0-44.9, adult (Acute) Vitamin D deficiency (Acute) Prediabetes (Acute) Hypertension (Chronic) Migraine (Chronic) IUD surveillance (Acute 03/12/20) Mirena Medical History Hyperplastic colon polyp Tubular adenoma of colon Serrated adenoma of colon Family history of breast cancer Pain in left wrist Allergic rhinitis Surgical History History of colonoscopy (~07/2022) [place] teeth removed Family History Sister Breast cancer Thyroid disease Mother Diabetes Social History Smoking/Tobacco Use Status: Former Tobacco Use Quit Date: 09/14/79 Smoking risk assessment performed?: Yes Alcohol Intake: current Alcohol Intake frequency: holidays/special occasions only Alcohol type: beer and wine Drug use: Never Substance use type: does not use Do you feel safe at home: Yes Do you feel safe in your relationship?: Yes Female Reproductive History Menstrual control method: progestin IUCD History History 2 Para 1 Hx # Term Pregnancies Multiple births Hx # Pregnancies Ectopic pregnancies AB induced Hx Number of Living Children AB spontaneous Exam Narrative Exam Narrative: Review of Systems: All systems reviewed & are unremarkable except as noted in HPI and below: CONSTITUTIONAL: Alert and oriented Obese, febrile, tachypneic HEENT: NACT EYES: PERRL, no conjunctival injection EARS: no external abnormality NOSE nares patent MOUTH Moist MM NECK: Symmetric, trachea midline, No thyromegaly THROAT oropharynx clear CVS: RRR, No murmurs or gallops. Peripheral pulses 2+ and equal in all extremities Brisk capillary refill in all extremities. No peripheral edema RESP: Unlabored respiratory effort, Clear to auscultation bilaterally No wheezes rales or rhonchi GI: MSK: Extremities with full range of motion, no deformity or TTP SKIN: Warm, Dry. No rashes or lesions. NEURO: No focal neurologic deficits. computational linguist II-XII grossly intact Sensation grossly intact Normal strength throughout PSYCH: Appropriate mood and affect Course Vital Signs Vital signs: Vital Signs Temperature 38.6 C H 07/11/23 06:48 Pulse 111 H 07/11/23 06:48 Respiratory Rate 27 H 07/11/23 06:48 Blood Pressure 183/78 H 07/11/23 06:48 Pulse Oximetry 93 07/11/23 06:48 Temperature 38.6 C H 07/11/23 06:48 Temperature Source Temporal Artery Scan 07/11/23 06:48 Pulse 111 H 07/11/23 06:48 Respiratory Rate 27 H 07/11/23 06:48 Respiratory Effort Normal 07/11/23 06:50 Blood Pressure 183/78 H 07/11/23 06:48 Blood Pressure Position Supine 07/11/23 06:48 Pulse Oximetry 93 07/11/23 06:48 Pain Level 0 07/11/23 06:48 Lab/Test Results Lab/Test Results: 07/11/23 06:55 Blood Blood Culture - Pending 07/11/23 06:55 Blood Blood Culture - Pending Critical Care Time Critical Care Time Critical Care Time: Yes Total Critical Care Time: 34 Attestation: CRITICAL CARE Upon my evaluation, this patient had a high probability of imminent or life- threatening deterioration due to sepsis which required my direct attention, intervention, and personal management. I have personally provided 34 minutes of critical care time exclusive of time spent on separately billable procedures. Time includes review of laboratory data, radiology results, discussion with consultants, and monitoring for potential decompensation. Interventions were performed as documented above
[2023-07-11 07:25] LABS: BE (Venous) 5 mmol/L (-2-3); HCO3 (Venous) 29 mmol/L (23-28); Lactate 3.1 mmol/L (0.6-1.4); O2 Sat (Venous) 66 %; TCO2 (Venous) 26 mmol/L (24-29); pCO2 (Venous) 45 mmHg (41-51); pH (Venous) 7.42 (7.31-7.41); pO2 (Venous) 33 mmHg
[2023-07-11] MEDS: Lactated Ringers 1,000 ML 1000 ML IV ×2 (07:28→09:05)
--- NOTE | 2023-07-11 07:30 | DI.RAD_ITS ---
Exam(s) XR PORTABLE CHEST AP EXAM: XR PORTABLE CHEST AP CLINICAL HISTORY: fever TECHNIQUE: 2D digital imaging was performed. COMPARISON: CR CHEST 2 VIEWS PA,LAT from 01/12/2017 FINDINGS: Exam is limited by poor pulmonary inflation and under penetration particularly at the lung bases. Ba silar infiltrates not excluded. LUNGS: Grossly clear where visualized. No pleural abnormality seen. HEART: Normal size. AORTA: Normal diameter. BONES: Unremarkable for age. Soft tissues: Unremarkable. IMPRESSION: Limited exam. Basilar infiltrates not excluded. DATA REPOSITORY: RADIATION DOSE DELIVERED:
[2023-07-11] MEDS: CEFEPIME 1 GM in Normal Saline 50 ML IVPB (07:39)
[2023-07-11] MEDS: Acetaminophen 500 MG TAB 1000 MG PO (08:06)
[2023-07-11 08:11] LABS: COVID-19 PCR Negative (Negative); Influenza A PCR Negative (Negative); Influenza B PCR Negative (Negative); RSV PCR Negative (Negative)
[2023-07-11 08:12] LABS: Source Nasopharynx
[2023-07-11] MEDS: VANCOMYCIN/WATER (PEG) 2 GM/400 ML BAG IV (08:17)
--- NOTE | 2023-07-11 08:46 | DI.VRAD_ITS ---
PROCEDURE INFORMATION: Exam: XR Chest Exam date and time: 07/11/2023 8:33 AM Age: 58 years old Clinical indication: Other: Fever TECHNIQUE: Imaging protocol: Radiologic exam of the chest. Views: 1 view. COMPARISON: CR CHEST 2 VIEWS PA,LAT 01/12/2017 12:49 PM FINDINGS: Lungs: Unremarkable. No consolidation. Pleural spaces: Unremarkable. No pleural effusion. No pneumothorax. Heart/Mediastinum: Unremarkable. No cardiomegaly. Bones/joints: Unremarkable. IMPRESSION: No acute findings. Dictated and Authenticated by: Odalis Castillo MD. Ordering:[facility] Yue Pearson MD
[2023-07-11 09:21] LABS: ALT 25 U/L (14-59); AST 16 U/L (15-37); Albumin 3.4 g/dL (3.4-5.0); Alkaline Phosphatase 48 U/L (46-116); Anion Gap 9.2 mmol/L (3-11); BUN 18 mg/dL (7-18); Bilirubin, Total 0.6 mg/dL (0.2-1.0); CO2 26.8 mmol/L (21.0-32.0); CREATININE 1.1 mg/dL (0.55-1.02); Calcium 9.7 mg/dL (8.5-10.1); Chloride 102 mmol/L (98-107); Estimated GFR 58.97 (mL/min/1.73m2); Glucose 135 mg/dL (74-106); Magnesium 1.4 mg/dL (1.8-2.4); Sodium 138 mmol/L (136-145); Total Protein 7.4 g/dL (6.4-8.2); Troponin I < 50 ng/L (<or=60)
[2023-07-11 09:35] LABS: Bilirubin Negative (Negative); Blood Moderate (Negative); Clarity Sl Cloudy (Clear); Glucose Negative (Negative); Ketones Negative (Negative); Leukocyte Esterase Negative (Negative); Nitrite Negative (Negative); Urobilinogen 0.2 mg/dL (Up to 0.2)
[2023-07-11 09:48] LABS: Bacteria Many HPF (Negative); C & S Indicated? No/Sq. Contamination; Casts Negative LPF (Negative); Crystals Negative HPF (Negative); Epithelial Cells Many HPF (Negative); Mucus Trace (Negative)
[2023-07-11 10:04] LABS: Abs Immature Grans 0.06 10^3/uL (0.0-0.06); Absolute Basophil Count 0.06 10^3/uL (0.0-0.2); Absolute Eosinophil Count 0.05 10^3/uL (0.0-0.7); Basophils % 0.4; Eosinophils % 0.3; HCT 45.4 % (36.0-46.0); HGB 14.5 g/dL (11.2-15.7); Immature Grans % 0.4; Lymphocytes % 2.6; MCH 27.2 pg (27.0-33.0); MCHC 31.9 % (32.0-36.0); MCV 85 fL (80-95); MPV 9.2 fL (8.0-11.0); Monocytes % 2.4; Neutrophils % 93.9; Platelet Count 244 10^3/uL (130-400); RBC 5.34 10^6/uL (3.93-5.22); RDW 13.9 % (11.7-14.6); RDW-SD 43.1 fL; WBC 15.64 10^3/uL (4.4-10.8)
[2023-07-11 10:05] LABS: Absolute Lymphocyte Count 0.41 10^3/uL (1.2-3.4); Absolute Monocyte Count 0.38 10^3/uL (0.1-0.8); Absolute Neutrophil Count 14.69 10^3/uL (1.2-6.7)
[2023-07-11 10:28] LABS: Lactate 2.2 mmol/L (0.6-1.4)
[2023-07-11] MEDS: Ibuprofen 600 MG TAB PO (10:32)
[2023-07-11] MEDS: POTASSIUM CHLORIDE/D5-0.45NACL 1,000 ML 100 MEQ IV (12:22)
[2023-07-11] MEDS: Normal Saline Flush 10 ML SYR IVP (12:26)
[2023-07-11 14:07] LABS: MRSA PCR Negative (Negative)
[2023-07-11] MEDS: Acetaminophen 325 MG TAB PO ×2 (15:08→23:24)
[2023-07-11] MEDS: CEFEPIME 2 GM in Normal Saline 100 ML IVPB ×2 (15:09→23:34)
--- NOTE | 2023-07-11 15:24 | HPE_ITS ---
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 C/O some pain, but declines pain med Cefepime & Vanco BC pending (3) Sepsis: Status: Acute Assessment and plan: Lactate elevated 3.1, second 2.2 - WBC 15.64 Two litres LR given (4) Hypokalemia: Status: Acute Assessment and plan: Potassium 3.0 - 40 meq orally (ED gave IVF w 10 meq KCL) Trend (5) Hypomagnesemia: Status: Acute Assessment and plan: Mag 1.4 - repleted Trend (6) Fever: Status: Acute Assessment and plan: 37.5 c Monitor Acetaminophen IVF LR 150 ml/h (7) Hypertension: Status: Chronic Assessment and plan: Continue home meds Monitor BP S120s (8) DVT prophylaxis: Status: Acute Assessment and plan: Enoxaparin (9) Discharge planning issues: Status: Acute Assessment and plan: Home when medically stable; no services History of Present Illness History of Present Illness Chief Complaint: Fever and chills Narrative: This is a 58 year old female patient with past medical history of depression, hypertension, obesity, and prediabetes who presented to the [facility] ED for evaluation of subjective fever and chills. Patient reported symptoms started throughout the night, shaking chills and unable to get warm. She reported a cough for several days. She described this as her long COVID cough. She does not use oxygen at home. Denies any nausea, vomiting, shortness of breath, chest pain or abdominal pain. No known sick contacts. In the ED lactic acid elevated 3.1. Creatinine slightly elevated, 1.1, just up slightly from baseline. Procalcitonin is 3. WBC 15. Potassium 3.0, Magnesium 1.4. EKG sinus tach 110 otherwise unremarkable. Viral testing negative, chest xray negative, urinalysis negative. Patient received two litres of NS in the ED. Patient is admitted to the medical floor for further testing and treatment. Review of Systems All systems reviewed & are unremarkable except as noted in HPI and below PFSH All Active Problems (Updated 07/11/23 @ 16:00 by Jeanie Martinez NP) Hypomagnesemia (Acute) Discharge planning issues (Acute) DVT prophylaxis (Acute) Pneumonia (Acute) Cellulitis of right lower extremity (Acute) Hypokalemia (Acute) Sepsis (Acute) Hypoxia (Acute) Fever (Acute) Encounter for colorectal cancer screening (Acute) Depression (Chronic) BMI 40.0-44.9, adult (Acute) Vitamin D deficiency (Acute) Prediabetes (Acute) Hypertension (Chronic) Migraine (Chronic) IUD surveillance (Acute 03/12/20) Mirena Medical History Hyperplastic colon polyp Tubular adenoma of colon Serrated adenoma of colon Family history of breast cancer Pain in left wrist Allergic rhinitis Surgical History History of colonoscopy (~07/2022) [place] teeth removed Family History Sister Breast cancer Thyroid disease Mother Diabetes Social History Smoking/Tobacco Use Status: Former Tobacco Use Quit Date: 09/14/79 Smoking risk assessment performed?: Yes Alcohol Intake: current Alcohol Intake frequency: holidays/special occasions only Alcohol type: beer and wine Drug use: Never Substance use type: does not use Housing: house Do you feel safe at home: Yes Do you feel safe in your relationship?: Yes Female Reproductive History Menstrual control method: progestin IUCD History History 2 2 Para 1 Hx # Term Pregnancies Multiple births Hx # Pregnancies Ectopic pregnancies AB induced Hx Number of Living Children AB spontaneous Meds Allergies and Home Medications Allergies Allergy/AdvReac Type Severity Reaction Status Date / Time No Known Allergies Allergy Verified 07/11/23 06:59 Home Medications Medication Instructions Recorded Confirmed Type cholecalciferol (vitamin D3) 100 100 mcg PO DAILY 03/12/20 07/11/23 History mcg (4,000 unit) tablet levonorgestrel 21 mcg/24 hours (8 1 device intrauterine ONCE 03/12/20 07/11/23 History yrs) 52 mg intrauterine device (Mirena) cetirizine 10 mg capsule (All Day 10 mg PO DAILY PRN 10/31/21 07/11/23 History Allergy (cetirizine)) chlorthalidone 25 mg tablet 25 mg PO DAILY 10/31/21 07/11/23 History citalopram 20 mg tablet 20 mg PO DAILY 10/31/21 07/11/23 History losartan 100 mg tablet 100 mg PO HS 10/31/21 07/11/23 History omeprazole 20 mg capsule,delayed 20 mg PO DAILY PRN 06/23/22 07/11/23 History release Exam Narrative Exam Narrative: CONSTITUTIONAL: Alert and oriented Obese, semi fowlers in bed, awake, alert, conversant, pleasant HEENT: EYES: PERRL, no conjunctival injection EARS: no external abnormality NOSE nares patent MOUTH Moist MM NECK: Symmetric, trachea midline, No thyromegaly THROAT oropharynx clear CVS: RRR, No murmurs or gallops. Peripheral pulses 2+ and equal in all extremities Brisk capillary refill in all extremities. No peripheral edema RESP: Unlabored respiratory effort, Clear to auscultation bilaterally No wheezes rales or rhonchi GI: Abdomen soft, BS present, non tender MSK: Extremities with full range of motion, SKIN: Warm, Dry. RLE anterior calf red, hot, no open areas No rashes NEURO: No focal neurologic deficits. statistical clerk II-XII grossly intact Sensation grossly intact Normal strength throughout PSYCH: Appropriate mood and affect Results Labs 07/11/23 07:10 07/11/23 08:45 Labs: Laboratory Results - last 24 hr 07/11/23 07/11/23 07/11/23 06:50 07:08 07:10 WBC 15.64 H RBC 5.34 H Hgb 14.5 Hct 45.4 MCV 85 MCH 27.2 MCHC 31.9 L RDW 13.9 Plt Count 244 MPV 9.2 Immature Gran % 0.4 Neutrophils % 93.9 Lymphocytes % 2.6 Monocytes % 2.4 Eosinophils % 0.3 Basophils % 0.4 Nucleated RBC % 0.0 Absolute Neutrophils 14.69 H Absolute Lymphocytes 0.41 L Absolute Monocytes 0.38 Absolute Eosinophils 0.05 Absolute Basophils 0.06 VBG pH 7.42 H VBG pCO2 45 VBG pO2 33 VBG HCO3 29 H VBG Total CO2 26 VBG O2 Saturation 66 VBG Base Excess 5 H VBG Lactate 3.1 H* Sodium Cancelled Potassium Cancelled Chloride Cancelled Carbon Dioxide Cancelled Anion Gap Cancelled BUN Cancelled Creatinine Cancelled Est GFR (CKD-EPI 2020) Cancelled Glucose Cancelled Calcium Cancelled Magnesium Cancelled Cancelled Total Bilirubin Cancelled AST Cancelled ALT Cancelled Alkaline Phosphatase Cancelled Troponin I Cancelled Total Protein Cancelled Albumin Cancelled Procalcitonin Cancelled Urine Color Urine Clarity Urine pH Ur Specific Wedron Urine Protein Urine Ketones Urine Blood Urine Nitrite Urine Bilirubin Urine Urobilinogen Ur Leukocyte Esterase Urine RBC Urine WBC Ur Epithelial Cells Urine Crystals Urine Bacteria Urine Casts Urine Mucus Ur Culture Indicated? Urine Glucose COVID-19 Source Nasopharynx SARS-CoV-2 (PCR) Negative Influenza Type A (PCR) Negative Influenza Type B (PCR) Negative RSV (PCR) Negative MRSA (TEM-PCR) 07/11/23 07/11/23 07/11/23 08:45 09:20 10:20 WBC RBC Hgb Hct MCV MCH MCHC RDW Plt Count MPV Immature Gran % Neutrophils % Lymphocytes % Monocytes % Eosinophils % Basophils % Nucleated RBC % Absolute Neutrophils Absolute Lymphocytes Absolute Monocytes Absolute Eosinophils Absolute Basophils VBG pH VBG pCO2 VBG pO2 VBG HCO3 VBG Total CO2 VBG O2 Saturation VBG Base Excess VBG Lactate 2.2 H* Sodium 138 Potassium 3.0 L Chloride 102 Carbon Dioxide 26.8 Anion Gap 9.2 BUN 18 Creatinine 1.1 H Est GFR (CKD-EPI 2020) 58.97 Glucose 135 H Calcium 9.7 Magnesium 1.4 L Total Bilirubin 0.6 AST 16 ALT 25 Alkaline Phosphatase 48 Troponin I < 50 Total Protein 7.4 Albumin 3.4 Procalcitonin 3.0 Urine Color Yellow Urine Clarity Sl Cloudy Urine pH 5.0 Ur Specific Wedron 1.020 Urine Protein 30 H Urine Ketones Negative Urine Blood Moderate H Urine Nitrite Negative Urine Bilirubin Negative Urine Urobilinogen 0.2 Ur Leukocyte Esterase Negative Urine RBC 10-20 H Urine WBC 3-5 Ur Epithelial Cells Many Urine Crystals Negative Urine Bacteria Many Urine Casts Negative Urine Mucus Trace Ur Culture Indicated? No/Sq. Contamination Urine Glucose Negative COVID-19 Source SARS-CoV-2 (PCR) Influenza Type A (PCR) Influenza Type B (PCR) RSV (PCR) MRSA (TEM-PCR) 07/11/23 12:36 WBC RBC Hgb Hct MCV MCH MCHC RDW Plt Count MPV Immature Gran % Neutrophils % Lymphocytes % Monocytes % Eosinophils % Basophils % Nucleated RBC % Absolute Neutrophils Absolute Lymphocytes Absolute Monocytes Absolute Eosinophils Absolute Basophils VBG pH VBG pCO2 VBG pO2 VBG HCO3 VBG Total CO2 VBG O2 Saturation VBG Base Excess VBG Lactate Sodium Potassium Chloride Carbon Dioxide Anion Gap BUN Creatinine Est GFR (CKD-EPI 2020) Glucose Calcium Magnesium Total Bilirubin AST ALT Alkaline Phosphatase Troponin I Total Protein Albumin Procalcitonin Urine Color Urine Clarity Urine pH Ur Specific Wedron Urine Protein Urine Ketones Urine Blood Urine Nitrite Urine Bilirubin Urine Urobilinogen Ur Leukocyte Esterase Urine RBC Urine WBC Ur Epithelial Cells Urine Crystals Urine Bacteria Urine Casts Urine Mucus Ur Culture Indicated? Urine Glucose COVID-19 Source SARS-CoV-2 (PCR) Influenza Type A (PCR) Influenza Type B (PCR) RSV (PCR) MRSA (TEM-PCR) Negative Last Vital Signs Temp 37.5 C 07/11/23 15:13 Pulse 90 07/11/23 15:13 Resp 18 07/11/23 15:13 BP 123/73 07/11/23 15:13 Pulse Ox 93 07/11/23 15:13 Time Spent Time spent with Patient: 55-74 minutes Time was spent: preparing to see the patient(eg.review tests), obtaining and/or reviewing separately otained hiistory, ordering medications,tests, procedures, referring, communicating with other health medicare sales representative, indepentently interpreting results, counseling the patient and care coordination
[2023-07-11] MEDS: Potassium Chloride 20 MEQ TABCR 40 MEQ PO (15:53)
[2023-07-11] MEDS: MAGNESIUM SULFATE 2 GM/50 ML BAG IVPB (15:54)
[2023-07-11 15:57] LABS: Lactate 1.8 mmol/L (0.6-1.4)
[2023-07-11 16:20] LABS: Troponin I < 50 ng/L (<or=60)
[2023-07-11] MEDS: Enoxaparin 40 MG/0.4 ML SYR SC (19:30)
[2023-07-11] MEDS: VANCOMYCIN 1,500 MG in Normal Saline 250 ML 166.667 MG IVPB (21:00)
[2023-07-11] MEDS: Losartan 50 MG TAB 100 MG PO (21:14)
[2023-07-12] VITALS (8 sets, daily range): BP systolic 123–138; BP diastolic 70–79; PULSE 83–102; RESP 18–20; TEMP 37.3–39.8; O2SAT 89–98
[2023-07-12] MEDS: Lactated Ringers 1,000 ML 150 ML IV ×2 (02:41→12:35)
[2023-07-12] MEDS: Acetaminophen 325 MG TAB PO ×3 (03:31→13:30)
[2023-07-12 06:58] LABS: Abs Immature Grans 0.12 10^3/uL (0.0-0.06); Absolute Eosinophil Count 0.01 10^3/uL (0.0-0.7); Absolute Monocyte Count 0.39 10^3/uL (0.1-0.8); Absolute Neutrophil Count 13.15 10^3/uL (1.2-6.7); Basophils % 0.3; Eosinophils % 0.1; HCT 38.3 % (36.0-46.0); HGB 12.8 g/dL (11.2-15.7); Immature Grans % 0.8; Lymphocytes % 4.9; MCH 28.1 pg (27.0-33.0); MCHC 33.4 % (32.0-36.0); MCV 84 fL (80-95); Monocytes % 2.7; Neutrophils % 91.2; Platelet Count 177 10^3/uL (130-400); RBC 4.55 10^6/uL (3.93-5.22); RDW 14.5 % (11.7-14.6); RDW-SD 44.4 fL; WBC 14.42 10^3/uL (4.4-10.8)
[2023-07-12 06:59] LABS: Absolute Basophil Count 0.04 10^3/uL (0.0-0.2); Absolute Lymphocyte Count 0.71 10^3/uL (1.2-3.4)
[2023-07-12 07:12] LABS: Magnesium 1.9 mg/dL (1.8-2.4)
[2023-07-12 07:16] LABS: Anion Gap 11.6 mmol/L (3-11); BUN 14 mg/dL (7-18); CO2 24.4 mmol/L (21.0-32.0); Calcium 9.1 mg/dL (8.5-10.1); Chloride 101 mmol/L (98-107); Estimated GFR 66.12 (mL/min/1.73m2); Glucose 127 mg/dL (74-106); Sodium 137 mmol/L (136-145)
[2023-07-12] MEDS: CEFEPIME 2 GM in Normal Saline 100 ML IVPB ×2 (07:21→15:11)
[2023-07-12 07:22] LABS: Potassium 2.9 mmol/L (3.5-5.1)
[2023-07-12] MEDS: VANCOMYCIN/WATER (PEG) 1.5 GM/300 ML BAG IV ×2 (08:25→21:01)
[2023-07-12] MEDS: Cholecalciferol (Vitamin D3) 1,000 UNIT TAB 4000 UNITS PO (08:27)
[2023-07-12] MEDS: Chlorthalidone 25 MG TAB PO (08:28)
[2023-07-12] MEDS: Citalopram 20 MG TAB PO (08:28)
[2023-07-12] MEDS: Ketorolac 30 MG/ML VIAL IVP (08:28)
[2023-07-12] MEDS: Enoxaparin 40 MG/0.4 ML SYR SC ×2 (08:29→20:44)
--- NOTE | 2023-07-12 08:47 | RESPIRATORY ---
RT Assessment Start: 07/11/23 15:59 Freq: .q shift and prn Status: Active Protocol: Document 07/12/23 08:38 ANAID (Rec: 07/12/23 08:45 ANAID [id number]) RT Assessment Smoking History Smoking/Tobacco Use Status Never OXYGEN HISTORY: Supplemental O2 At Rest 0 With Exertion 0 CPAP Can use home machine No BIPAP Can you home machine No Trilogy/AVAPS Can use home machine No DME/Compliance DME N/A Compliance N/A Current Respiratory Symptoms Current Respiratory Symptoms Cough,Shortness of breath, Wheezing Activity Activity Level Exercise class 3x/week (Thu, & ) Respiratory Breath Sounds Breath Sounds Any abnormal sounds, decreased breath sounds Response No change Pulse Rate <100 Respiratory Rate 18-25 Shortness of Breath None Respiratory Therapy Score Total 2 Assessment and Plan RT Treatment Protocol Lung Expansion Therapy Protocol,Bronchial Hygiene Therapy Protocol Note Pt currently does not use any respiratory meds, Doctor has ordered IS and Acapella in which RT started yesterday
--- NOTE | 2023-07-12 09:13 | INITIAL_ITS ---
Date of service: 07/12/23 Time of Service: 09:13 Care Management Initial Assmt Initial Assessment REASON FOR HOSPITALIZATION:: pneumonia and cellulitis of RLE PREVIOUS FUNCTIONAL STATUS/SOCIAL/FAMILY SUPPORTS:: Callie lives in [place], [place] with her Juan Antonio and son Will. 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 She is independent at baseline and does not receive any community services. CURRENT FUNCTIONAL STATUS:: Callie was sitting up in a chair visiting with her Juan Antonio when CM met with her. She was pleasant and agreeable to conversation, although she appeared quite ill. Callie has been febrile since admission with temperatures as high as 40 degrees C; it has been over 39 degrees C all day today. Her blood cultures are negative so far but her WBC remains elevated at 14.42 and her procalcitonin is 3.0. ADVANCE DIRECTIVES:: none on file Has patient been provided with info about the portal/API?: Yes Did the patient sign up for the portal?: No CODE STATUS:: Full Code INSURANCE COVERAGE / FINANCIAL ISSUES:: /[facility] CURRENT HOME/COMMUNITY SERVICES/EQUIPMENT:: none PRIMARY CARE PHYSICIAN:: Marisela De La Cruz POTENTIAL DISCHARGE NEEDS:: Follow up appointment with PCP PATIENT/FAMILY EDUCATION NEEDS:: Review of discharge instructions, limitations, activity, follow up plan, discuss Ask Me Three TRANSPORTATION:: via private vehicle with family PLAN:: Anticipate Callie will be discharged home with no new services when medically cleared. She will follow up with her community providers and plan of care and transport with family. CM will follow and support discharge planning needs. PFSH All Active Problems (Updated 07/11/23 @ 16:00 by Jeanie Martinez NP) Hypomagnesemia (Acute) Discharge planning issues (Acute) DVT prophylaxis (Acute) Pneumonia (Acute) Cellulitis of right lower extremity (Acute) Hypokalemia (Acute) Sepsis (Acute) Hypoxia (Acute) Fever (Acute) Encounter for colorectal cancer screening (Acute) Depression (Chronic) BMI 40.0-44.9, adult (Acute) Vitamin D deficiency (Acute) Prediabetes (Acute) Hypertension (Chronic) Migraine (Chronic) IUD surveillance (Acute 03/12/20) Mirena Medical History Hyperplastic colon polyp Tubular adenoma of colon Serrated adenoma of colon Family history of breast cancer Pain in left wrist Allergic rhinitis Surgical History History of colonoscopy (~07/2022) [place] teeth removed Family History Sister Breast cancer Thyroid disease Mother Diabetes Social History Smoking/Tobacco Use Status: Never Smoking risk assessment performed?: Yes Alcohol Intake: current Alcohol Intake frequency: holidays/special occasions only Alcohol type: beer and wine Drug use: Never Substance use type: does not use Housing: house Do you feel safe at home: Yes Do you feel safe in your relationship?: Yes Female Reproductive History Menstrual control method: progestin IUCD History History 2 Para 1 Hx # Term Pregnancies Multiple births Hx # Pregnancies Ectopic pregnancies AB induced Hx Number of Living Children AB spontaneous
--- NOTE | 2023-07-12 09:41 | PGE_ITS ---
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 to right great toe decreased C/O pain, but declines pain med but ketorolac for fever Will continue Cefepime & Vanco until further results on BC (2) Pneumonia: Status: Acute Assessment and plan: Patient reports having long covid with cough for months, febrile last night again, leukocytosis WBC 14.42 from 15.64 Will continue antibiotic therapy, while waiting one more day for Blood cultures (3) Sepsis: Status: Acute Assessment and plan: Lactate elevated 3.1, second 2.2 then 1.8- WBC 14.15.64 Two litres LR given, IVF stopped, increased pedal edema (4) Hypokalemia: Status: Acute Assessment and plan: Repleted for 2.9, BMP in AM (5) Hypomagnesemia: Status: Acute Assessment and plan: Mag 1.8, repleted on 07/11 - mag in AM Trend (6) Fever: Status: Acute Assessment and plan: Febrile 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 Roberto Subjective Subjective Patient reports: no new complaints (slept poorly dt chills,night sweats and fever ), feels better, still having pain (The patient reports that pain is well manage with current pain medicine regimen), pain is less, tolerating liquids well, tolerating a regular diet, voiding w/o difficulty, flatus, bowel movement, shortness of breath and fever; denies diarrhea, nausea or vomiting Exam Narrative Exam Narrative: Constitutional The patient is sitting in chair comfortable and cooperative during the i nterview. at bedside The patient is well groomed without acute distress and has obese body habitus HENMT: Head is atraumatic, normocephalic, no lymphadenopathy. Facial structures with normal appearance Eyes: Well aligned, intact ROM Neck: Normal ROM Neuro:alert and oriented to self, person, place time and situation. No neurological focal deficit, PERRLA Chest:Chest is symmetrical and normal appearance Resp: Normal respiratory pattern, speaks in full sentences, unlabored breathing, clear lung bilaterally with diminished bases Cardio: regular rhythm, S1, S2, no murmur, capillary refill> 5 sec. right first toe., bilateral radial and dorsalis pedis pulses are positive with doppler, edema to LEs right > left GI: Abdomen is large, not distended, soft and non tender, bowel sounds are p resent : Negative Costovertebral angle tenderness, no bladder distension Back/spine/Pelvis: No back tenderness, normal alignment Integumentary: Receding redness to right anterior lower leg Extremities: strength 5/5 to bilateral lower and upper extremities Psych: RASS 0, congruent mood and normal affect. Objective Last Vital Signs Temp 39.6 C H 07/12/23 08:28 Pulse 102 H 07/12/23 07:28 Resp 18 07/12/23 07:28 BP 123/78 07/12/23 07:28 Pulse Ox 98 07/12/23 07:28 Laboratory Results - last 24 hr 07/11/23 07/11/23 07/11/23 07:10 09:20 09:55 WBC 15.64 H RBC 5.34 H Hgb 14.5 Hct 45.4 MCV 85 MCH 27.2 MCHC 31.9 L RDW 13.9 Plt Count 244 MPV 9.2 Immature Gran % 0.4 Neutrophils % 93.9 Lymphocytes % 2.6 Monocytes % 2.4 Eosinophils % 0.3 Basophils % 0.4 Nucleated RBC % 0.0 Absolute Neutrophils 14.69 H Absolute Lymphocytes 0.41 L Absolute Monocytes 0.38 Absolute Eosinophils 0.05 Absolute Basophils 0.06 VBG Lactate Cancelled Sodium Potassium Chloride Carbon Dioxide Anion Gap BUN Creatinine Est GFR (CKD-EPI 2020) Glucose Calcium Magnesium Troponin I Urine RBC 10-20 H Urine WBC 3-5 Ur Epithelial Cells Many Urine Crystals Negative Urine Bacteria Many Urine Casts Negative Urine Mucus Trace Ur Culture Indicated? No/Sq. Contamination MRSA (TEM-PCR) 07/11/23 07/11/23 07/11/23 10:20 12:36 15:51 WBC RBC Hgb Hct MCV MCH MCHC RDW Plt Count MPV Immature Gran % Neutrophils % Lymphocytes % Monocytes % Eosinophils % Basophils % Nucleated RBC % Absolute Neutrophils Absolute Lymphocytes Absolute Monocytes Absolute Eosinophils Absolute Basophils VBG Lactate 2.2 H* 1.8 H Sodium Potassium Chloride Carbon Dioxide Anion Gap BUN Creatinine Est GFR (CKD-EPI 2020) Glucose Calcium Magnesium Troponin I < 50 Urine RBC Urine WBC Ur Epithelial Cells Urine Crystals Urine Bacteria Urine Casts Urine Mucus Ur Culture Indicated? MRSA (TEM-PCR) Negative 07/12/23 06:50 WBC 14.42 H RBC 4.55 Hgb 12.8 Hct 38.3 MCV 84 MCH 28.1 MCHC 33.4 RDW 14.5 Plt Count 177 MPV 9.0 Immature Gran % 0.8 Neutrophils % 91.2 Lymphocytes % 4.9 Monocytes % 2.7 Eosinophils % 0.1 Basophils % 0.3 Nucleated RBC % 0.0 Absolute Neutrophils 13.15 H Absolute Lymphocytes 0.71 L Absolute Monocytes 0.39 Absolute Eosinophils 0.01 Absolute Basophils 0.04 VBG Lactate Sodium 137 Potassium 2.9 L Chloride 101 Carbon Dioxide 24.4 Anion Gap 11.6 H BUN 14 Creatinine 1.0 Est GFR (CKD-EPI 2020) 66.12 Glucose 127 H Calcium 9.1 Magnesium 1.9 Troponin I Urine RBC Urine WBC Ur Epithelial Cells Urine Crystals Urine Bacteria Urine Casts Urine Mucus Ur Culture Indicated? MRSA (TEM-PCR) Time Spent with Patient Time Spent with Patient: >50 minutes Time was spent: preparing to see the patient(eg.review tests), ordering medications,tests, procedures, referring, communicating with other health inpatient care manager rn, indepentently interpreting results, counseling the patient and care coordination
[2023-07-12] MEDS: POTASSIUM CHLORIDE 20 MEQ/100 ML BAG 50 MEQ IVPB ×2 (10:30→12:12)
[2023-07-12] MEDS: POTASSIUM CHLORIDE 20 MEQ, POTASSIUM CHLORIDE 10 MEQ 30 MEQ PO ×2 (12:12→15:49)
[2023-07-12] MEDS: Ibuprofen 600 MG TAB PO (15:48)
[2023-07-12] MEDS: Pantoprazole 40 MG TABCR PO (15:49)
[2023-07-12] MEDS: ACETAMINOPHEN 1,000 MG/100 ML BTL 400 MG IVPB (20:40)
[2023-07-12] MEDS: Normal Saline Flush 10 ML SYR IVP (20:40)
[2023-07-12] MEDS: Losartan 50 MG TAB 100 MG PO (20:44)
[2023-07-13] VITALS (8 sets, daily range): BP systolic 107–129; BP diastolic 60–79; PULSE 79–84; RESP 14–18; TEMP 36.9–38.5; O2SAT 92–96
[2023-07-13] MEDS: Normal Saline Flush 10 ML SYR IVP ×2 (00:06→13:22)
[2023-07-13] MEDS: CEFEPIME 2 GM in Normal Saline 100 ML IVPB ×3 (00:06→16:56)
[2023-07-13] MEDS: ACETAMINOPHEN 1,000 MG/100 ML BTL 400 MG IVPB ×3 (02:01→13:22)
[2023-07-13 06:55] LABS: Abs Immature Grans 0.14 10^3/uL (0.0-0.06); Absolute Basophil Count 0.03 10^3/uL (0.0-0.2); Absolute Eosinophil Count 0.01 10^3/uL (0.0-0.7); Absolute Lymphocyte Count 0.72 10^3/uL (1.2-3.4); Absolute Monocyte Count 0.39 10^3/uL (0.1-0.8); Absolute Neutrophil Count 9.13 10^3/uL (1.2-6.7); Basophils % 0.3; Eosinophils % 0.1; HCT 38.7 % (36.0-46.0); HGB 12.3 g/dL (11.2-15.7); Immature Grans % 1.3; Lymphocytes % 6.9; MCHC 31.8 % (32.0-36.0); MCV 85 fL (80-95); MPV 9.2 fL (8.0-11.0); Monocytes % 3.7; Neutrophils % 87.7; Platelet Count 173 10^3/uL (130-400); RBC 4.55 10^6/uL (3.93-5.22); RDW 14.7 % (11.7-14.6); RDW-SD 45.4 fL; WBC 10.42 10^3/uL (4.4-10.8)
[2023-07-13 06:57] LABS: Anion Gap 8.7 mmol/L (3-11); BUN 12 mg/dL (7-18); CO2 25.3 mmol/L (21.0-32.0); CREATININE 0.8 mg/dL (0.55-1.02); Calcium 9.1 mg/dL (8.5-10.1); Chloride 104 mmol/L (98-107); Estimated GFR 86.42 (mL/min/1.73m2); Glucose 141 mg/dL (74-106); Magnesium 2.1 mg/dL (1.8-2.4); Potassium 3.6 mmol/L (3.5-5.1); Sodium 138 mmol/L (136-145)
[2023-07-13 07:03] LABS: Vancomycin, Trough 9.5 ug/mL (10.0-20.0)
[2023-07-13] MEDS: Enoxaparin 40 MG/0.4 ML SYR SC ×2 (07:43→19:29)
[2023-07-13] MEDS: Cholecalciferol (Vitamin D3) 1,000 UNIT TAB 4000 UNITS PO (07:44)
[2023-07-13] MEDS: Pantoprazole 40 MG TABCR PO (07:44)
[2023-07-13] MEDS: POTASSIUM CHLORIDE 20 MEQ, POTASSIUM CHLORIDE 10 MEQ 30 MEQ PO ×3 (07:45→16:00)
[2023-07-13] MEDS: Chlorthalidone 25 MG TAB PO (07:45)
[2023-07-13] MEDS: Citalopram 20 MG TAB PO (07:45)
--- NOTE | 2023-07-13 08:31 | PDOC.CMPRO ---
Date of service: 07/13/23 Time of Service: 08:31 Care Management Progress Note Progress Note Text Progress Note Text: S/O:Callie was sitting up in a chair visiting with her when CM met with her. She stated that she feels much better and her fevers had been much lower this morning. At 12:30 and 1:30 however she again had a fever of 38.5. Callie's blood cultures remain negative and her WBC has normalized. She continues to have a non-productive cough but no other respiratory symptoms. The cellulitis on her RLE is slowly improving although Callie still has some discomfort, erythema and swelling. She remains on IV antibiotic therapy. A: Callie is a 58 year old woman admitted on 07/11/23 with pneumonia and sepsis P: Anticipate Callie will be discharged home with no new services when medically cleared. She will follow up with her community providers and plan of care and transport with family. CM will follow and support discharge planning needs. :
[2023-07-13] MEDS: VANCOMYCIN/WATER (PEG) 1.5 GM/300 ML BAG IV (09:22)
--- NOTE | 2023-07-13 11:02 | W.PM.PROGNOT ---
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 great toe C/O pain reminded that Ketorolac was stopped and ibuprofen PRN to be asked for despite scheduled Acetaminophen,r Will continue Cefepime & stop Vancomycin as MRSA PCR swab was negative; We will initiate doxycycline 100 mg oral BID further results on BC pending, but negative at 48 hours, following up on inflammatory markers Considering RLE US vs CT if pain increases despite treatment; NO abscess seen on with POCUS on 07/12, good blood vessel compressibility (2) Pneumonia: Status: Acute Assessment and plan: Patient reports having long covid with cough for months, febrile last night again, leukocytosis WBC 14.42 from 15.64 negative for MRSA; antibiotic therapy in progress (3) Sepsis: Status: Acute Assessment and plan: Lactate elevated 3.1, second 2.2 then 1.8- WBC 10.42, from 15.64 on arrival Two litres LR given, IVF stopped, increased pedal edema intially but improving (4) Hypokalemia: Status: Acute Assessment and plan: Repleted for 2.9, BMP in AM (5) Hypomagnesemia: Status: Acute Assessment and plan: Mag 1.8, repleted on 07/11 - mag in AM Trend (6) Fever: Status: Acute Assessment and plan: Still febrile overnight , T max 38.5 today Monitoring Acetaminophen scheduled , ketoralac stopped 07/12, PRN Ibuprofen IVF LR 150 ml/h discontinued, encourage oral fluid (7) Hypertension: Status: Chronic Assessment and plan: Will continue home meds Monitor VS (8) DVT prophylaxis: Status: Acute Assessment and plan: Continue Enoxaparin (9) Discharge planning issues: Status: Acute Assessment and plan: Home when medically stable; no services If further needs develop CM will be consulted Discussed with Dr. Roberto Subjective Subjective Patient reports: no new complaints, feels better, still having pain (The patient reminded to ask for PRN ibuprofen to better manage pain d/t inflammation), tolerating liquids well, tolerating a regular diet, voiding w/o difficulty, flatus, bowel movement and afebrile; denies diarrhea, nausea, vomiting or shortness of breath Exam Narrative Exam Narrative: Constitutional The patient is in bed, cooperative during the interview. at bedside The patient is well groomed without acute distress and has obese body habitus HENMT: Head is atraumatic, normocephalic and facial structures have normal appearance Eyes: Well aligned Neck: Normal ROM Neuro:alert and oriented to self, person, place, time and situation. No neurological focal deficit, Chest:Chest is symmetrical and normal appearance Resp: Normal respiratory pattern, speaks in full sentences, unlabored breathing, clear lung bilaterally with bases remains somewhat diminished Cardio: EKG regular rhythm, QTC 0.441, S1, S2, no murmur, capillary refill> 4sec. right first toe., bilateral radial and dorsalis pedis pulses are positive , edema to LEs right > left GI: Abdomen is large, not distended, soft and non tender, bowel sounds are present : no bladder distension Back/spine/Pelvis: No back tenderness, normal alignment Integumentary: Stable redness to right anterior lower leg Extremities: strength 5/5 to bilateral lower and upper extremities Psych: RASS 0, congruent mood and normal affect. Objective Last Vital Signs Temp 37.8 C H 07/13/23 07:37 Pulse 82 07/13/23 07:37 Resp 18 07/13/23 07:37 BP 107/60 07/13/23 07:37 Pulse Ox 93 07/13/23 08:34 Laboratory Results - last 24 hr 07/13/23 06:40 WBC 10.42 RBC 4.55 Hgb 12.3 Hct 38.7 MCV 85 MCH 27.0 MCHC 31.8 L RDW 14.7 H Plt Count 173 MPV 9.2 Immature Gran % 1.3 Neutrophils % 87.7 Lymphocytes % 6.9 Monocytes % 3.7 Eosinophils % 0.1 Basophils % 0.3 Nucleated RBC % 0.0 Absolute Neutrophils 9.13 H Absolute Lymphocytes 0.72 L Absolute Monocytes 0.39 Absolute Eosinophils 0.01 Absolute Basophils 0.03 Sodium 138 Potassium 3.6 Chloride 104 Carbon Dioxide 25.3 Anion Gap 8.7 BUN 12 Creatinine 0.8 Est GFR (CKD-EPI 2020) 86.42 Glucose 141 H Calcium 9.1 Magnesium 2.1 Vancomycin Trough 9.5 L Time Spent with Patient Time Spent with Patient: >50 minutes Time was spent: preparing to see the patient(eg.review tests), ordering medications,tests, procedures, referring, communicating with other health patient care director, indepentently interpreting results, counseling the patient and care coordination
[2023-07-13] MEDS: Ibuprofen 600 MG TAB PO (13:22)
--- NOTE | 2023-07-13 15:12 | PHA.REVIEW2 ---
Pharmacy Admission Review Admission Clinical Review Admission Pharmacy Review: (Updated 07/11/23 @ 16:00 by Jeanie Martinez NP) Hypomagnesemia (Acute) Discharge planning issues (Acute) DVT prophylaxis (Acute) Pneumonia (Acute) Cellulitis of right lower extremity (Acute) Hypokalemia (Acute) Sepsis (Acute) Hypoxia (Acute) Fever (Acute) No Known Allergies Allergy (Verified 07/11/23 06:59) Resuscitation Status Full Code Height 5 ft 11 in Weight 163.293 kg Comments Comments/Follow Ups: Watch VS, mag, K+, labs, for EKG results, for culture results and for med changes (avoid additional QTc prolonging medication). Pharmacy Admission Review Renal Dosing Renal Dosing: BUN 12 mg/dL (7-18) 07/13/23 06:40 Creatinine 0.8 mg/dL (0.55-1.02) 07/13/23 06:40 Medications needing adjustments: Reviewed (Crcl ~133 mL/min current meds okay) Anticoagulation Anticoagulation: Hgb 12.3 g/dL (11.2-15.7) 07/13/23 06:40 Hct 38.7 % (36.0-46.0) 07/13/23 06:40 Plt Count 173 10^3/uL (130-400) 07/13/23 06:40 Creatinine 0.8 mg/dL (0.55-1.02) 07/13/23 06:40 DVT Prophylaxis: Reviewed (pt's weight was inaccurate on admission, will ask provider if they want to adjust enoxaparin dosing based on BMI.) Medications: Enoxaparin Opiate Usage Evaluate Pain Scale/Pains Meds: N/A Relevant Labs Relevant Labs: Sodium 138 mmol/L (136-145) 07/13/23 06:40 Potassium 3.6 mmol/L (3.5-5.1) 07/13/23 06:40 Chloride 104 mmol/L (98-107) 07/13/23 06:40 Magnesium 2.1 mg/dL (1.8-2.4) 07/13/23 06:40 Electrolytes, C-Reactive P, ESR: Reviewed (mag and K+ improved since admission) DM Control DM Control: Reviewed (prediabetes noted in medical history, previous A1c from 2021) Cardiac Review Cardiac Review: Troponin I < 50 ng/L (<or=60) 07/11/23 15:51 BP, HR, EF%: Reviewed (BP and HR within normal limits so far today) QTc Review QTc: Intervened (QTc 525 on admission, pt. is on citalopram, mag and K+ were low on admission too. Mag and K+ have improved, pt was not on tele to check current QTc. Made provider aware, EKG being ordered.) IV to PO Switch IV Medications: Intervened (I asked provider about changing acetaminophen from IV to PO, okay to change to PO.) Home Meds Home Med List reviewed: Reviewed Relevent Home Meds Not ordered & why?: cetirizine (PRN) Current Meds Current Medication Order Review: Intervened (I asked provider if the PRN omeprazole was still needed or if it could be discontinued since the patient was put on scheduled pantoprazole. Omeprazole was discontiuned.) Pharmacy Antibiotic Review Pharmacy Antibiotic Activity: 48 hour review, Abx regimen adjustment and C/S review Comments: Blood cultures no growth @48 hours, MRSA screen negative. Currently on vanco and cefepime for cellulitis and pneumonia. Provider planned to discontinue the vanco and add PO doxycycline. Comments Comments/Follow Ups: Watch VS, mag, K+, labs, for EKG results, for culture results and for med changes (avoid additional QTc prolonging medication).
--- NOTE | 2023-07-13 16:15 | RT.EKG_ITS ---
APPROVED REPORT Exam: Resting ECG Reason for Exam: QTC prolongation Patient Location: I HR:76 bpm ECG Measurements Heart Rate 76 AXIS AK 160 P 37 QRSd 88 QRS 29 QT 392 T 61 QTc 441 Conclusion Sinus rhythm...normal P axis, V-rate 50- 99 Low voltage, precordial leads...precordial leads <1.0mV Baseline wander in lead(s) I,II,aVR,aVL,aVF,V1,V2,V6 Otherwise normal ECG
[2023-07-13] MEDS: Acetaminophen 500 MG TAB 1000 MG PO (19:30)
[2023-07-13] MEDS: Doxycycline Hyclate 100 MG CAP PO (19:30)
[2023-07-13] MEDS: Losartan 50 MG TAB 100 MG PO (22:01)
--- NOTE | 2023-07-14 | DI.US_ITS ---
Exam(s) US LOWER EXTREMITY VENOUS RT EXAM: US LOWER EXTREMITY VENOUS RT CLINICAL HISTORY: rule out dvt TECHNIQUE: Right lower extremity venous ultrasound performed using grayscale, color-flow, and spectr al Doppler analysis. COMPARISON: No exams were available for comparison FINDINGS: The right common femoral, femoral and popliteal veins demonstrate normal compressibility, augmentatio n, and color Doppler. The posterior tibial vein are patent. The saphenofemoral junction is unremarka ble. There is no evidence of a Ruth cyst. There is edema in the right lower extremity soft tissue. IMPRESSION: No evidence of a right lower extremity DVT. DATA REPOSITORY:
[2023-07-14] MEDS: Acetaminophen 500 MG TAB 1000 MG PO ×3 (00:21→11:55)
[2023-07-14] MEDS: CEFEPIME 2 GM in Normal Saline 100 ML IVPB ×2 (00:22→09:04)
[2023-07-14 06:04] VITALS: O2SAT 96
[2023-07-14 06:44] LABS: Abs Immature Grans 0.04 10^3/uL (0.0-0.06); Absolute Basophil Count 0.04 10^3/uL (0.0-0.2); Absolute Eosinophil Count 0.07 10^3/uL (0.0-0.7); Absolute Lymphocyte Count 0.76 10^3/uL (1.2-3.4); Absolute Neutrophil Count 7.79 10^3/uL (1.2-6.7); Basophils % 0.4; Eosinophils % 0.7; HCT 37.8 % (36.0-46.0); HGB 12.3 g/dL (11.2-15.7); Immature Grans % 0.4; Lymphocytes % 8.1; MCH 27.2 pg (27.0-33.0); MCHC 32.5 % (32.0-36.0); MCV 83 fL (80-95); MPV 9.3 fL (8.0-11.0); Monocytes % 7.4; Platelet Count 192 10^3/uL (130-400); RBC 4.53 10^6/uL (3.93-5.22); RDW 14.6 % (11.7-14.6); RDW-SD 45.3 fL
[2023-07-14 06:46] LABS: ESR 62 mm/hr (0-30)
[2023-07-14 07:02] LABS: Anion Gap 11.1 mmol/L (3-11); BUN 9 mg/dL (7-18); C-Reactive Protein 22.95 mg/dL (0.0-0.3); CO2 24.9 mmol/L (21.0-32.0); CREATININE 0.8 mg/dL (0.55-1.02); Calcium 9.6 mg/dL (8.5-10.1); Chloride 102 mmol/L (98-107); Estimated GFR 86.42 (mL/min/1.73m2); Glucose 122 mg/dL (74-106); Magnesium 1.9 mg/dL (1.8-2.4); Potassium 3.6 mmol/L (3.5-5.1); Sodium 138 mmol/L (136-145)
[2023-07-14 07:30] LABS: Procalcitonin 2.5 ng/mL
[2023-07-14] MEDS: Normal Saline Flush 10 ML SYR IVP ×2 (08:02→10:22)
[2023-07-14] MEDS: Chlorthalidone 25 MG TAB PO (08:03)
[2023-07-14] MEDS: POTASSIUM CHLORIDE 20 MEQ, POTASSIUM CHLORIDE 10 MEQ 30 MEQ PO ×3 (08:03→16:28)
[2023-07-14] MEDS: Enoxaparin 40 MG/0.4 ML SYR SC (08:03)
[2023-07-14] MEDS: Pantoprazole 40 MG TABCR PO (08:03)
[2023-07-14] MEDS: Cholecalciferol (Vitamin D3) 1,000 UNIT TAB 4000 UNITS PO (08:03)
[2023-07-14] MEDS: Ibuprofen 600 MG TAB PO (08:04)
[2023-07-14] MEDS: Doxycycline Hyclate 100 MG CAP PO (08:04)
[2023-07-14] MEDS: Citalopram 20 MG TAB PO (08:04)
[2023-07-14] MEDS: Normal Saline 500 ML 30 ML IV (09:03)
--- NOTE | 2023-07-14 09:13 | W.PM.PROGNOT ---
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 toe C/O pain reminded that Ketorolac was stopped and ibuprofen PRN to be asked for despite scheduled Acetaminophen,r Will continue Cefepime & stop Vancomycin as MRSA PCR swab was negative; We will initiate doxycycline 100 mg oral BID further results on BC pending, but negative at 48 hours, following up on inflammatory markers; ESR 62 CRP 22.95 procalcitonin 2.5 from 3.0 on 07/11, will continue to monitor Considering RLE US vs CT if pain increases despite treatment; NO abscess seen on with POCUS on 07/12, good blood vessel compressibility (2) Pneumonia: Status: Acute Assessment and plan: Patient reports having long covid with cough for months, febrile last night again, leukocytosis WBC 14.42 from 15.64 negative for MRSA; antibiotic therapy in progress CT also was showing congested pulmonary vasculature, with increased wheezing and swelling considering giving furosemide IVP (3) Sepsis: Status: Acute Assessment and plan: Lactate elevated 3.1, second 2.2 then 1.8- no further leukocytosis WBC was on 07/13 10.42, from 15.64 on arrival Two litres LR given, IVF stopped, increased bilateral pedal edema intially, improving but still noticeable: considering IV furosemide (4) Hypokalemia: Status: Acute Assessment and plan: Repleted for 2.9 on arrival to floor, BMP in AM (5) Hypomagnesemia: Status: Acute Assessment and plan: Mag 1.8, repleted on 07/11 - mag in AM Trend (6) Fever: Status: Acute Assessment and plan: Still febrile overnight , T max 38.5 today Monitoring Changing scheduled Acetaminophen to PRN as it can mask fevers. The patient is now past 48 hours of antibiotics and has no further leukocytosis , ketoralac stopped 07/12, PRN Ibuprofen remains ordered IVF LR 150 ml/h discontinued, encourage oral fluid (7) Hypertension: Status: Chronic Assessment and plan: Will continue home meds Monitor VS (8) DVT prophylaxis: Status: Acute Assessment and plan: Continue Enoxaparin (9) Discharge planning issues: Status: Acute Assessment and plan: Home when medically stable on oral antibiotics such as doxycycline 100 mg PO BID and Cefpodoxime 400 mg PO BID or Keflex 500 mg PO BID. no services If further needs develop CM will be consulted Discussed with Dr. Roberto Subjective Subjective Patient reports: no new complaints, feels better, still having pain (The patient reminded to ask for PRN ibuprofen to better manage pain d/t inflammation), tolerating liquids well, tolerating a regular diet, voiding w/o difficulty, flatus, bowel movement and afebrile; denies diarrhea, nausea, vomiting or shortness of breath (but reports wheezing) Exam Narrative Exam Narrative: Constitutional The patient is in bed, cooperative during the interview. at bedside The patient is well groomed without acute distress and has obese body habitus HENMT: Head is atraumatic, normocephalic and facial structures have normal appearance Eyes: Well aligned Neck: Normal ROM Neuro:alert and oriented to self, person, place, time and situation. No neurological focal deficit, Chest:Chest is symmetrical and normal appearance Resp: Normal respiratory pattern, speaks in full sentences, unlabored breathing, clear lung bilaterally with bases remains somewhat diminished, laryngeal whheezing Cardio: EKG regular rhythm, QTC 0.441, S1, S2, no murmur, capillary refill> 4sec. right first toe., bilateral radial and dorsalis pedis pulses are positive , edema to LEs right > left GI: Abdomen is large, not distended, soft and non tender, bowel sounds are present : no bladder distension Back/spine/Pelvis: No back tenderness, normal alignment Integumentary: Stable redness to right anterior lower leg Extremities: strength 5/5 to bilateral lower and upper extremities Psych: RASS 0, congruent mood and normal affect. Objective Last Vital Signs Temp 37.5 C 07/13/23 22:08 Pulse 79 07/13/23 22:08 Resp 14 07/13/23 22:08 BP 129/79 07/13/23 22:08 Pulse Ox 96 07/14/23 06:04 Laboratory Results - last 24 hr 07/14/23 06:33 WBC 9.40 RBC 4.53 Hgb 12.3 Hct 37.8 MCV 83 MCH 27.2 MCHC 32.5 RDW 14.6 Plt Count 192 MPV 9.3 Immature Gran % 0.4 Neutrophils % 83.0 Lymphocytes % 8.1 Monocytes % 7.4 Eosinophils % 0.7 Basophils % 0.4 Nucleated RBC % 0.0 Absolute Neutrophils 7.79 H Absolute Lymphocytes 0.76 L Absolute Monocytes 0.70 Absolute Eosinophils 0.07 Absolute Basophils 0.04 ESR 62 H Sodium 138 Potassium 3.6 Chloride 102 Carbon Dioxide 24.9 Anion Gap 11.1 H BUN 9 Creatinine 0.8 Est GFR (CKD-EPI 2020) 86.42 Glucose 122 H Calcium 9.6 Magnesium 1.9 C-Reactive Protein 22.95 H Procalcitonin 2.5
[2023-07-14 09:36] VITALS: BP 128/74; PULSE 84; RESP 20; TEMP 37.3; O2SAT 93
[2023-07-14] MEDS: Furosemide 20 MG/2 ML VIAL IVP (10:22)
[2023-07-14] MEDS: Benzonatate 100 MG CAP PO (13:56)
--- NOTE | 2023-07-14 15:03 | DSE_ITS ---
Date of service: 07/14/23 Time of Service: 15:03 DS: Diagnosis Discharge Diagnosis (1) Cellulitis of right lower extremity: Status: Acute (2) Pneumonia: Status: Acute (3) Sepsis: Status: Acute (4) Hypokalemia: Status: Acute (5) Hypomagnesemia: Status: Acute (6) Fever: Status: Acute (7) Hypertension: Status: Chronic (8) DVT prophylaxis: Status: Acute (9) Discharge planning issues: Status: Acute Discharge Plan Disposition Patient Disposition: Home Condition: Improving Discharge Details Reason For Visit: Pneumonia, Sepsis Admit Date/Time: 07/11/23 10:12 Admit Provider: Sanchez Roberto Attending Provider: Sanchez Roberto Primary Care Provider: TANESHA CROWLEY [facility] Course Hospital Course: This is a 58 year old female patient with past medical history of depression, hypertension, obesity, and prediabetes presented to the [facility] ED on 07/12 for evaluation of subjective fever and chills, red swollen anterior right lower leg. Patient reported symptoms started throughout the night, shaking chills and unable to get warm. She reported a cough for several days. She described this as her long COVID cough. She does not use oxygen at home. Denies any nausea, vomiting, shortness of breath, chest pain or abdominal pain. No known sick contacts. In the ED lactic acid elevated 3.1. Creatinine slightly elevated, 1.1, just up slightly from baseline. Procalcitonin is 3. WBC 15. Potassium 3.0 and replete, Magnesium 1.4 and replete. EKG sinus tach 110 otherwise unremarkable. Viral testing negative, chest xray negative, urinalysis negative. Patient received two litres of NS in the ED. Patient is admitted to the medical floor for further testing and treatment for pneumonia, right lower extremity cellulitis and suspected sepsis. During? the stay , the patient treated with vancomycin and cefepime, was negative for? MRSA. The patient was started on doxycycline as vancomycin was stopped. After 48 hours the patient was afebrile. The initial redness site on the right anterior lower leg improved but the patient reported new redness to the upper inner leg- groin area; with pain on ambulation. Right lower extremity ultrasound completed without evidence of blood clot. The patient will be discharge home on oral doxycycline 100 mg twice daily and cefpodoxime 400 mg oral twice a day with food for 8 more days, completing 10 days of antibiotics. She will follow-up with her primary care provider on Thursday this week. She will have to elevate her right leg and rest, thus she will be off work until Thursday when seen by Jono Antonio her primary care provider. Home Meds and New Rx's Prescriptions: New doxycycline hyclate 100 mg Capsule 100 mg PO BID Qty: 16 0RF cefpodoxime 200 mg Tablet 400 mg PO BID Qty: 16 0RF Bio-K plus 50 billion cell capsule,delayed release(DR/EC) 1 cap PO DAILY Qty: 10 0RF Continued cholecalciferol (vitamin D3) 100 mcg (4,000 unit) tablet 100 mcg PO DAILY Mirena 20 mcg/24 hours (5 yrs) 52 mg intrauterine device 1 device IY ONCE Rx Instructions: as a single dose losartan 100 mg tablet 100 mg PO HS chlorthalidone 25 mg tablet 25 mg PO DAILY All Day Allergy (cetirizine) 10 mg capsule 10 mg PO DAILY PRN citalopram 20 mg tablet 20 mg PO DAILY omeprazole 20 mg capsule,delayed release(DR/EC) 20 mg PO DAILY PRN Discharge Instructions Referrals: TANESHA CROWLEY, NANOTECHNOLOGY ENGINEERING TECHNOLOGIST [Primary Care Provider] - 07/17/23 (This is a 58 year old female patient with past medical history of depression, hypertension, obesity, and prediabetes presented to the [facility] ED on 07/12 for evaluation of subjective fever and chills, red swollen anterior right lower leg. Discharged on Doxycycline and Cefpodoxime for 8 more days ( Total 10 days).) Activity:: Activity as Tolerated Equipment/Supplies:: No Equipment Needed Diet:: As Tolerated Discharge Orders Discharge Orders: Discharge Order (Routine); Ordered 07/14/23 Ordered By: Marnie Stevens DS: Summary Time Spent with Patient providing and/or coordinating discharge services: Greater than 30 minutes Status at Discharge Functional status at discharge: independent ambulation Overall status at discharge: patient is progressing back to baseline Mental Status: mental status grossly normal Speech and Movement: speech and movement normal Mood: congruent mood Affect: normal affect Exam Narrative Exam Narrative: Constitutional The patient is in bed, cooperative during the interview. at bedside The patient is well groomed without acute distress and has obese body habitus HENMT: Head is atraumatic, normocephalic and facial structures have normal appearance Eyes: Well aligned Neck: Normal ROM Neuro:alert and oriented to self, person, place, time and situation. No neurological focal deficit, Chest:Chest is symmetrical and normal appearance Resp: Normal respiratory pattern, speaks in full sentences, unlabored breathing, clear lung bilaterally with bases remains somewhat diminished, laryngeal whheezing Cardio: EKG regular rhythm, QTC 0.441, S1, S2, no murmur, capillary refill> 4sec. right first toe., bilateral radial and dorsalis pedis pulses are positive , edema to LEs right > left GI: Abdomen is large, not distended, soft and non tender, bowel sounds are present : no bladder distension Back/spine/Pelvis: No back tenderness, normal alignment Integumentary: Stable redness to right anterior lower leg Extremities: strength 5/5 to bilateral lower and upper extremities Psych: RASS 0, congruent mood and normal affect. Psych Mental Status: mental status grossly normal Speech and Movement: speech and movement normal Mood: congruent mood Affect: normal affect DS: Data Vitals/I&O Vitals and I&O: Vital Signs Temperature 37.3 C 07/14/23 09:36 Temperature Source Tympanic 07/14/23 09:36 Pulse 84 07/14/23 09:36 Pulse Rhythm Regular 07/14/23 07:59 Pulse 97 H 07/11/23 10:00 Respiratory Rate 20 07/14/23 09:36 Respiratory Effort Normal, Non-Labored 07/14/23 07:59 Respiratory Depth Normal 07/14/23 07:59 Respiratory Pattern Normal 07/14/23 07:59 Blood Pressure 128/74 07/14/23 09:36 Blood Pressure Mean 82 07/11/23 10:49 Blood Pressure Position Supine 07/11/23 06:48 Pulse Oximetry 93 07/14/23 09:36 Oxygen Delivery Method Room Air 07/14/23 09:36 Oxygen Flow Rate 0 07/14/23 09:36 Pain Level 5 07/14/23 11:55 Comment RN was going to put pt on oxygen. 07/12/23 23:35 Intake & Output 07/13/23 07/14/23 07/14/23 23:59 11:59 23:59 Intake Total 980 / 1880 1340.5 / 1580.5 240 / 1580.5 Output Total 500 / 500 Balance 480 / 1380 1340.5 / 1580.5 240 / 1580.5 Weight 164.9 kg Intake: IV 500 / 900 310.5 / 310.5 Oral 480 / 980 1030 / 1270 240 / 1270 Output: Urine 500 / 500 Other: Comment Independently uses bathroom. Per pt. report, void x1 in the toilet. Voiding Methods Toilet Toilet Data Completed and Pending Labs on day of discharge: Labs from last 24 hours 07/14/23 06:33 WBC 9.40 RBC 4.53 Hgb 12.3 Hct 37.8 MCV 83 MCH 27.2 MCHC 32.5 RDW 14.6 Plt Count 192 MPV 9.3 Immature Gran % 0.4 Neutrophils % 83.0 Lymphocytes % 8.1 Monocytes % 7.4 Eosinophils % 0.7 Basophils % 0.4 Nucleated RBC % 0.0 Absolute Neutrophils 7.79 H Absolute Lymphocytes 0.76 L Absolute Monocytes 0.70 Absolute Eosinophils 0.07 Absolute Basophils 0.04 ESR 62 H Sodium 138 Potassium 3.6 Chloride 102 Carbon Dioxide 24.9 Anion Gap 11.1 H BUN 9 Creatinine 0.8 Est GFR (CKD-EPI 2020) 86.42 Glucose 122 H Calcium 9.6 Magnesium 1.9 C-Reactive Protein 22.95 H Procalcitonin 2.5 Preliminary micro results at discharge 07/11/23 08:45 Blood Culture - Preliminary Blood NO GROWTH 72 HOURS 07/11/23 07:10 Blood Culture - Preliminary Blood NO GROWTH 72 HOURS PFSH All Active Problems (Updated 07/11/23 @ 16:00 by Jeanie Martinez NP) Hypomagnesemia (Acute) Discharge planning issues (Acute) DVT prophylaxis (Acute) Pneumonia (Acute) Cellulitis of right lower extremity (Acute) Hypokalemia (Acute) Sepsis (Acute) Hypoxia (Acute) Fever (Acute) Encounter for colorectal cancer screening (Acute) Depression (Chronic) BMI 40.0-44.9, adult (Acute) Vitamin D deficiency (Acute) Prediabetes (Acute) Hypertension (Chronic) Migraine (Chronic) IUD surveillance (Acute 03/12/20) Mirena Medical History Hyperplastic colon polyp Tubular adenoma of colon Serrated adenoma of colon Family history of breast cancer Pain in left wrist Allergic rhinitis Surgical History History of colonoscopy (~07/2022) [place] teeth removed Family History Sister Breast cancer Thyroid disease Mother Diabetes Social History Smoking/Tobacco Use Status: Never Smoking risk assessment performed?: Yes Alcohol Intake: current Alcohol Intake frequency: holidays/special occasions only Alcohol type: beer and wine Drug use: Never Substance use type: does not use Housing: house Do you feel safe at home: Yes Do you feel safe in your relationship?: Yes Female Reproductive History Menstrual control method: progestin IUCD History History 2 Para 1 Hx # Term Pregnancies Multiple births Hx # Pregnancies Ectopic pregnancies AB induced Hx Number of Living Children AB spontaneous Time Spent with Patient Time Spent with Patient: >85 minutes Time was spent: preparing to see the patient(eg.review tests), ordering medications,tests, procedures, referring, communicating with other health housekeeper child care, indepentently interpreting results, counseling the patient and care coordination
[2023-07-14 15:17] VITALS: TEMP 36.4
[2023-07-14 15:37] VITALS: BP 121/76; PULSE 81; RESP 16; TEMP 36.9; O2SAT 93
--- NOTE | 2023-07-14 15:45 | CHAPLAIN ---
Callie was up in a chair with her leg up, waiting for her nurse to rewrap her leg, when I visited. Her sister was with her, visiting from [place]. I explained my role and offered support. I will continue to visit.
--- NOTE | 2023-07-14 16:11 | PDOC.CMDIS ---
Date of service: 07/14/23 Time of Service: 16:11 LACE Index Scoring Tool Questions: Length of Stay (in days): 3 Was the patient admitted via the E.D.?: Yes E.D. Visits: 0 Answers: Total Score: 6 Risk of Readmission: Low Risk Care Management Discharge Plan Reason for Hospitalization: pneumonia and cellulitis of RLE Discharge Plan: Callie is discharged home with no services. She will follow up with her PCP and plan of care as instructed. She is transported home by family via private vehicle. Patient/Family Education Needs: Nursing staff review discharge instructions including medications, limitations and follow up plan of care; discuss Ask Me Three and self management.
== END 2023-07-14 17:39 | disposition home or self-care (01) | DRG 871 ==
LOC: ER 10:34 → MS 11:11
PROVIDERS: Nurse Practitioner Acute Care; Nurse Practitioner Family; Admitting Provider Family Medicine; Emergency Provider Emergency Medicine; PCP Nurse Practitioner Family; Visit Provider Family Medicine
DX: A41.9 Sepsis, unspecified organism (principal); J18.9 Pneumonia, unspecified organism; L03.115 Cellulitis of right lower limb; Z68.43 Body mass index [BMI] 50.0-59.9, adult; E87.6 Hypokalemia; E83.42 Hypomagnesemia; F32.A Depression, unspecified; I10 Essential (primary) hypertension; R73.03 Prediabetes; G43.909 Migraine, unspecified, not intractable, without status migrainosus; E55.9 Vitamin D deficiency, unspecified; R09.02 Hypoxemia; J30.9 Allergic rhinitis, unspecified; Z80.3 Family history of malignant neoplasm of breast; Z86.010 Personal history of colon polyps; Z87.891 Personal history of nicotine dependence; E66.9 Obesity, unspecified; R05.9 Cough, unspecified
CPT/HCPCS: 00123; 36415; 80048; 80053; 82805; 82962; 84145; 85652; 87040; 87637; 87641; 93005; 96361; 96365; 96366; 96367; 99291; J1650; 71045; 80202; 81003; 81015; 83605; 83735; 84484; 85025; 86140; 93010; 93971; 94667; 94668; 94760; 99222; 99233; 99239; J0131; J1885; J1941; J3480

== ENCOUNTER 2023-07-27 14:49 | Outpatient (REF) | payer BC, SELFPAY | END 2023-07-27 14:50 | disposition home or self-care (01) | LOC: LBN 14:49 | PROVIDERS: PCP Nurse Practitioner Family; Visit Provider Surgery | DX: I10 Essential (primary) hypertension (principal); L03.115 Cellulitis of right lower limb; R73.03 Prediabetes; Z68.41 Body mass index [BMI] 40.0-44.9, adult | CPT/HCPCS: 87077; 87070; 87075; 87186; 87205 ==

== ENCOUNTER 2023-07-27 21:16 | Outpatient (CLI) | payer BC, SELFPAY ==
[2023-07-27 15:06] LABS: Abs Immature Grans 0.02 10^3/uL (0.0-0.06); Absolute Basophil Count 0.07 10^3/uL (0.0-0.2); Absolute Eosinophil Count 0.09 10^3/uL (0.0-0.7); Absolute Lymphocyte Count 2.03 10^3/uL (1.2-3.4); Absolute Monocyte Count 0.52 10^3/uL (0.1-0.8); Absolute Neutrophil Count 5.36 10^3/uL (1.2-6.7); Basophils % 0.9; Eosinophils % 1.1; HCT 41.2 % (36.0-46.0); HGB 13.4 g/dL (11.2-15.7); Immature Grans % 0.2; Lymphocytes % 25.1; MCH 27.6 pg (27.0-33.0); MCHC 32.5 % (32.0-36.0); MCV 85 fL (80-95); MPV 8.8 fL (8.0-11.0); Monocytes % 6.4; Neutrophils % 66.3; Platelet Count 370 10^3/uL (130-400); RBC 4.85 10^6/uL (3.93-5.22); RDW 13.7 % (11.7-14.6); RDW-SD 42.5 fL; WBC 8.09 10^3/uL (4.4-10.8)
[2023-07-27 15:19] LABS: C-Reactive Protein 1.19 mg/dL (0.0-0.3)
[2023-07-27 15:47] LABS: D-Dimer 4219 ng/mlFEU (<500)
== END 2023-07-27 21:17 | disposition home or self-care (01) ==
LOC: LBO 21:17
PROVIDERS: PCP Nurse Practitioner Family; Visit Provider Surgery
DX: I10 Essential (primary) hypertension (principal); L03.115 Cellulitis of right lower limb; R73.03 Prediabetes; Z68.41 Body mass index [BMI] 40.0-44.9, adult
CPT/HCPCS: 36415; 85025; 85379; 86140; 87075

== ENCOUNTER 2023-09-08 10:11 | Outpatient (REF) | payer BC, SELFPAY ==
[2023-09-08 15:46] LABS: HCT 43.7 % (36.0-46.0); HGB 13.9 g/dL (11.2-15.7); MCH 26.8 pg (27.0-33.0); MCHC 31.8 % (32.0-36.0); MCV 84 fL (80-95); MPV 9.1 fL (8.0-11.0); Platelet Count 281 10^3/uL (130-400); RBC 5.18 10^6/uL (3.93-5.22); RDW 13.7 % (11.7-14.6); RDW-SD 42.6 fL; WBC 8.38 10^3/uL (4.4-10.8)
[2023-09-08 16:17] LABS: ALT 28 U/L (14-59); AST 22 U/L (15-37); Albumin 3.6 g/dL (3.4-5.0); Alkaline Phosphatase 64 U/L (46-116); Anion Gap 9.1 mmol/L (3-11); BUN 14 mg/dL (7-18); Bilirubin, Total 0.3 mg/dL (0.2-1.0); CO2 28.9 mmol/L (21.0-32.0); CREATININE 0.8 mg/dL (0.55-1.02); Calcium 9.7 mg/dL (8.5-10.1); Chloride 102 mmol/L (98-107); Estimated GFR 86.42 (mL/min/1.73m2); Glucose 98 mg/dL (74-106); Potassium 3.7 mmol/L (3.5-5.1); Sodium 140 mmol/L (136-145); Total Protein 8.3 g/dL (6.4-8.2)
[2023-09-08 17:22] LABS: Hemoglobin A1C 6.1 % (<5.7)
[2023-09-08 17:44] LABS: Vitamin D 25 Total 24.9 ng/mL (30-100)
== END 2023-09-08 10:12 | disposition home or self-care (01) ==
LOC: NCHCN 10:11
PROVIDERS: PCP Nurse Practitioner Family; Visit Provider Nurse Practitioner Family
DX: I10 Essential (primary) hypertension (principal); R73.03 Prediabetes; E55.9 Vitamin D deficiency, unspecified
CPT/HCPCS: 80053; 82306; 85027; 83036

== ENCOUNTER → 2023-11-09 02:42 | Outpatient (CLI) | payer BC, SELFPAY ==
--- NOTE | 2023-11-09 | DI.MAMMO_ITS ---
Exam(s) MAMMO SCREENING EXAM: MAMMO SCREENING CLINICAL HISTORY: SCREENING,Z12.31. TECHNIQUE: Bilateral full field digital CC and MLO mammographic images were obtained with 3D tomosyn thesis and utilizing computer aided detection (CAD). COMPARISON: Prior mammograms were reviewed. FINDINGS: There has been no significant change in the appearance and distribution of the fibroglandular tissue. There are no CAD designations. There are no new spiculated masses nor malignant appearing microcalcification groups. There is no significant architectural distortion nor skin thickening-retraction. IMPRESSION: No radiographic evidence of malignancy. BI-RADS Category 1 - Negative Breast Density - Category B - Scattered areas of fibroglandular density Breast density Category C or D implies that the patient has dense breast tissue. Dense breast tissue can make it harder to find cancer on a mammogram. Dense breast tissue is also associated with an incr eased risk of breast cancer. This information about the result of the mammogram report was provided to the patient to raise their awareness. Use this report when you speak with the patient about their risks for breast cancer, which includes their family history. At that time, you may recommend additional screening tests (Ultrasoun d or MRI) as these tests may add significant information. A negative radiographic report should not delay biopsy if a dominant or clinically suspicious mass is present. Up to ten percent of cancers are not identified on mammography. A negative report may reinforce clinical impression. Adenosis and dense breasts may obscure an underlying neoplasm. False positive reports average 6 to 10%. Patient will receive a letter notifying them of these results.
== END ==
PROVIDERS: PCP Nurse Practitioner Family; Visit Provider Nurse Practitioner Family
DX: Z12.31 Encounter for screening mammogram for malignant neoplasm of breast (principal)
CPT/HCPCS: 77063; 77067

== ENCOUNTER 2023-12-06 12:49 | Emergency (ER) | payer BC, SELFPAY ==
[2023-12-06 12:52] VITALS: BP 138/70; PULSE 82; RESP 18; TEMP 36.9; O2SAT 95
--- NOTE | 2023-12-06 13:42 | ED.GENADUL_ITS ---
Discharge Plan Disposition Patient Disposition: Home Condition: Stable Discharge Details Clinical Impression: Cellulitis Primary Care Provider: TANESHA CROWLEY ED Provider: Trae Beard Home Meds and New Rx's Prescriptions: New cephalexin 500 mg capsule 500 mg PO QID 10 Days Qty: 40 0RF No Action cholecalciferol (vitamin D3) 100 mcg (4,000 unit) tablet 100 mcg PO DAILY Mirena 20 mcg/24 hours (5 yrs) 52 mg intrauterine device 1 device IY ONCE Rx Instructions: as a single dose albuterol sulfate 90 mcg/actuation HFA aerosol inhaler 2 puff inhalation Q6H PRN (Reason: shortness of breath or wheezing) Qty: 6.7 0RF (DME) Aerochamber MV Spacer See Rx Instructions .Route Qty: 1 0RF Rx Instructions: As directed losartan 100 mg tablet 100 mg PO HS chlorthalidone 25 mg tablet 25 mg PO DAILY All Day Allergy (cetirizine) 10 mg capsule 10 mg PO DAILY PRN citalopram 20 mg tablet 20 mg PO DAILY omeprazole 20 mg capsule,delayed release(DR/EC) 20 mg PO DAILY PRN Bio-K plus 50 billion cell capsule,delayed release(DR/EC) 1 cap PO DAILY Qty: 10 0RF mupirocin 2 % ointment 1 applic topical BID Qty: 15 0RF Discharge Instructions Instructions: Cephalexin (By mouth), Cellulitis (ED) Additional Instructions: You were seen in the emergency department for your cellulitis of your right valdes. This is consistent with a soft tissue infection and I have sent you home with cephalexin as well as sent a further prescription. This antibiotic will also treat most UTIs. Please check your portal or follow-up with your regular provider in regards to checking the results from your urinalysis given at today's visit. Please use therapeutic dosing of Tylenol (acetamenophen) & Advil (ibuprofen) in an alternating fashion as follows: Take 1000mg of Tylenol every 6 hours without missing doses- that is 4 times per day. Long-Term in between the Tylenol dosings, take 400-600mg of Advil also on a 6 hour schedule, that is also 4 times per day. The daily maximum dosing of Tylenol is 4000mg, and the daily maximum dosing of Advil is 2400mg. This is safe to do for weeks. Please note that some common cold medications & prescription pain medications may contain acetamenophen and you need to read OTC drug labels and factor that in to maximum daily dosings. Elevate the leg and return for any worsening despite treatment especially with fever, red streaking up the leg, inability to ambulate. Referrals: TANESHA CROWLEY TELECOMMUNICATION LINES REPAIRER [Primary Care Provider] - Discharge Data Discharge Date/Time-TO BE ENTERED AT DEPARTURE: 12/06/23 14:03 HPI General Date/Time Provider Initiated Documentation: 12/06/23 13:01 . HPI Narrative: 58 year-old female presents to ED today by POV/ambulating with her with a chief complaint of redness to R valdes, recurrent cellulitis in history with onset for past few days. Quality described as warm to touch, mildly painful to palpation, no radiation to active fever, nausea, red streaking up the leg, unilateral leg swelling, numbness/tingling distally. Severity is described as moderate. Palliating factors include traced with skin marker appropriately at home. Provoking factors include nothing specific. Events leading up to the incident/Associated Symptoms: patient concerned as she has had sepsis from soft tissue infection in remote past. Chronic t2DM history. Patient not anticoagulated. Related Data Home Medications Medication Instructions Recorded Confirmed cholecalciferol (vitamin D3) 100 100 mcg PO DAILY 03/12/20 12/06/23 mcg (4,000 unit) tablet levonorgestrel 21 mcg/24 hours (8 1 device intrauterine ONCE 03/12/20 12/06/23 yrs) 52 mg intrauterine device (Mirena) cetirizine 10 mg capsule (All Day 10 mg PO DAILY PRN 10/31/21 12/06/23 Allergy (cetirizine)) chlorthalidone 25 mg tablet 25 mg PO DAILY 10/31/21 12/06/23 citalopram 20 mg tablet 20 mg PO DAILY 10/31/21 12/06/23 losartan 100 mg tablet 100 mg PO HS 10/31/21 12/06/23 omeprazole 20 mg capsule,delayed 20 mg PO DAILY PRN 06/23/22 12/06/23 release L. acidophilus,casei,rhamnosus 50 1 cap PO DAILY #10 caps 07/14/23 12/06/23 billion cell capsule,delayed release (Bio-K plus) mupirocin 2 % topical ointment 1 applic topical BID #15 grams 07/15/23 12/06/23 albuterol sulfate 90 mcg/actuation 2 puff inhalation Q6H PRN 09/01/23 12/06/23 aerosol inhaler shortness of breath or wheezing #6.7 grams inhalational spacing device #1 ea 09/01/23 12/06/23 (Aerochamber MV spacer) cephalexin 500 mg capsule 500 mg PO QID cellulitis 10 days 12/06/23 #40 caps Previous Rx's Medication Instructions Recorded L. acidophilus,casei,rhamnosus 50 1 cap PO DAILY #10 caps 07/14/23 billion cell capsule,delayed release (Bio-K plus) mupirocin 2 % topical ointment 1 applic topical BID #15 grams 07/15/23 albuterol sulfate 90 mcg/actuation 2 puff inhalation Q6H PRN 09/01/23 aerosol inhaler shortness of breath or wheezing #6.7 grams inhalational spacing device #1 ea 09/01/23 (Aerochamber MV spacer) cephalexin 500 mg capsule 500 mg PO QID cellulitis 10 days 12/06/23 #40 caps Allergies Allergy/AdvReac Type Severity Reaction Status Date / Time No Known Allergies Allergy Verified 12/06/23 12:57 General Stated Complaint: Cellulitis SHANT: 3 Review of Systems All systems reviewed & are unremarkable except as noted in HPI and below Exam Narrative Exam Narrative: GENERAL APPEARANCE: Well-nourished, non-toxic, awake and alert, atraumatic, no acute distress. SKIN: Warm, pink, dry, 15x8cm area of macular erythema to R valdes, traced with skin marker, no fluctuant swelling, no purulent drainage, no crusting, no focal nodular swellings, Aubrey's negative, no medial thigh tenderness, NV intact distally HEAD: Normocephalic, atraumatic, normal hair distribution for gender/age. EYES: Pupils PERRLA, EOMs intact without nystagmus, normal conjunctiva, no exudates on lids/lashes. ENT: Nares patent, no circumoral cyanosis, no facial swelling NECK: Supple, trachea midline, painless cervical ROM. LUNGS/CHEST: Non-labored respirations, normal A/P diameter, symmetrical expansion, no chest wall deformity HEART (CV/PV): Regular rate, R dorsalis pedis pulse 2+, no peripheral edema, no JVD. ABDOMEN: Soft, non-distended, no guarding. MSK: Normal ROM, no swelling/deformity to bilateral UEs or LEs, moving all extremities without weakness, no cyanosis, spine midline without tenderness, n ormal curvature. NEURO: Mental Status AAOx4 - alert to person, place, time, events No facial droop, no forehead involvement. Motor: No focal weakness - strength 5/5 in bilateral UEs and LEs, proximal and distal, symmetric. Sensory: sensation intact to light touch globally. Gait normal: patient ambulated without ataxia into ED room. PSYCH: euthymic, cooperative, pleasant, appropriate speech Course Vital Signs Vital signs: Vital Signs Temperature 36.9 C 12/06/23 12:52 Pulse 82 12/06/23 12:52 Respiratory Rate 18 12/06/23 12:52 Blood Pressure 138/70 12/06/23 12:52 Pulse Oximetry 95 12/06/23 12:52 Temperature 36.9 C 12/06/23 12:52 Temperature Source Oral 12/06/23 12:52 Pulse 82 12/06/23 12:52 Respiratory Rate 18 12/06/23 12:52 Respiratory Effort Normal, Non-Labored 12/06/23 12:57 Blood Pressure 138/70 12/06/23 12:52 Pulse Oximetry 95 12/06/23 12:52 Oxygen Delivery Method Room Air 12/06/23 12:52 Oxygen Flow Rate 0 12/06/23 12:52 Pain Level 5 12/06/23 12:52 Medical Decision Making This dictation utilizes [id number] dictation software and may contain unedited grammatical errors. 58 y/o F presents to ED today with a chief complaint of redness to R valdes, macular, no fluctuant swelling, no red streaking up the leg, no numbn ess/tingling, no purulent drainage, no active fever. Patients' medical history: history of recurrent cellulitis, t2DM. Family and social history: noncontributory. Pertinent exam findings / vital signs include SKIN: Warm, pink, dry, 15x8cm area of macular erythema to R valdes, traced with skin marker, no fluctuant swelling, no purulent drainage, no crusting, no focal nodular swellings, Aubrey's negative, no medial thigh tenderness, NV intact distally. Nontoxic vitals. Differential / pathologies of concern include Cellulitis, superficial thrombophlebitis unlikely, unlikely sepsis. Diagnostic studies of: -none, reasonable to attempt PO antibiotics with strict return criteria. Interventions of: -Outpt Rx for cephalexin. ED Course/Assessment/Plan: 58-year-old female presents with a 15 x 8 cm area of macular erythema and warmth to touch to her right valdes, there is no fluctuant swelling or unilateral leg swelling or other signs of vascular pathology. She is neurovascularly intact distally. She is nontoxic vitals and I do not suspect sepsis at this time I did discuss strict return criteria and return for any fever and red streaking up the leg/lymphadenitis. Patient was comfortable with trial of p.o. antibiotics at home and I counseled on therapeutic dosing of Tylenol and ibuprofen. Findings not consistent with sepsis, vascular pathology of lower extremity. Disposition of cellulitis. Patient verbalized understanding of the plan and return to ED criteria and engaged in shared decision making. Quality:SDOH Health Related Social Needs: No Data to Display PFSH All Active Problems (Updated 12/06/23 @ 13:51 by LYUBOV Pacheco) Cellulitis (Acute) Venous stasis dermatitis of both lower extremities (Acute) Varicose veins with complications (Acute) Venous stasis ulcer (Acute) RLE Pneumonia (Acute) Encounter for colorectal cancer screening (Acute) Depression (Chronic) BMI 40.0-44.9, adult (Acute) Vitamin D deficiency (Acute) Prediabetes (Acute) Hypertension (Chronic) Migraine (Chronic) IUD surveillance (Acute 03/12/20) Mirena Medical History Cellulitis of right lower extremity Hypomagnesemia Hypokalemia Sepsis Hypoxia Fever Hyperplastic colon polyp Tubular adenoma of colon Serrated adenoma of colon Family history of breast cancer Pain in left wrist Allergic rhinitis Surgical History History of colonoscopy (~07/2022) [place] teeth removed Family History Sister Breast cancer Thyroid disease Mother Diabetes Social History Smoking/Tobacco Use Status: Never Smoking risk assessment performed?: Yes Alcohol Intake: current Alcohol Intake frequency: holidays/special occasions only Alcohol type: beer and wine Drug use: Never Substance use type: does not use Housing: house Do you feel safe at home: Yes Do you feel safe in your relationship?: Yes Female Reproductive History Menstrual control method: progestin IUCD History History 2 Para 1 Hx # Term Pregnancies Multiple births Hx # Pregnancies Ectopic pregnancies AB induced Hx Number of Living Children AB spontaneous
[2023-12-06] MEDS: Cephalexin 500 MG CAP, 2 CAPS/BTL PO (14:03)
[2023-12-06 14:19] LABS: Bilirubin Negative (Negative); Blood Small (Negative); Clarity Clear (Clear); Glucose Negative (Negative); Ketones Negative (Negative); Leukocyte Esterase Small (Negative); Nitrite Negative (Negative); Specific Gravity 1.015 (1.005-1.025); Urobilinogen 0.2 mg/dL (Up to 0.2)
[2023-12-06 14:30] LABS: Epithelial Cells Many HPF (Negative); Other Cells Mod Transitional (Negative)
[2023-12-06 14:31] LABS: Bacteria Few HPF (Negative); C & S Indicated? No/Sq. Contamination; Casts Negative LPF (Negative); Crystals Negative HPF (Negative); Mucus Negative (Negative)
== END 2023-12-06 14:03 | disposition home or self-care (01) ==
LOC: ER 13:51
PROVIDERS: Emergency Provider Physician Assistant; PCP Nurse Practitioner Family
DX: L03.115 Cellulitis of right lower limb (principal)
CPT/HCPCS: 99283; 81003; 81015

== ENCOUNTER 2024-07-19 16:19 | Outpatient (CLI) | payer BC, SELFPAY ==
[2024-07-19 17:03] LABS: HCT 41.6 % (36.0-46.0); MCH 27.7 pg (27.0-33.0); MCHC 33.7 % (32.0-36.0); MCV 82 fL (80-95); Platelet Count 278 10^3/uL (130-400); RBC 5.06 10^6/uL (3.93-5.22); RDW 13.3 % (11.7-14.6); RDW-SD 39.5 fL; WBC 8.66 10^3/uL (4.4-10.8)
[2024-07-19 17:55] LABS: ALT 25 U/L (14-59); AST 15 U/L (15-37); Albumin 3.9 g/dL (3.4-5.0); Alkaline Phosphatase 63 U/L (46-116); Anion Gap 8.5 mmol/L (3-11); BUN 24 mg/dL (7-18); Bilirubin, Total 0.39 mg/dL (0.2-1.0); CO2 32.5 mmol/L (21.0-32.0); Calcium 10.1 mg/dL (8.5-10.1); Calculated LDL 98 mg/dL (<100); Chloride 101 mmol/L (98-107); Cholesterol 157 mg/dL (<200); Estimated GFR 65.71 (mL/min/1.73m2); Glucose 103 mg/dL (74-106); HDL Cholesterol 41 mg/dL (40-60); Potassium 3.1 mmol/L (3.5-5.1); Sodium 142 mmol/L (136-145); Triglyceride 94 mg/dL (<150)
[2024-07-19 18:13] LABS: Hemoglobin A1C 5.8 % (<5.7)
== END 2024-07-19 16:20 | disposition home or self-care (01) ==
LOC: LBO 16:21
PROVIDERS: PCP Nurse Practitioner Family; Visit Provider Nurse Practitioner Family
DX: L03.115 Cellulitis of right lower limb (principal); Z13.220 Encounter for screening for lipoid disorders
CPT/HCPCS: 36415; 80053; 80061; 85027; 83036

== ENCOUNTER 2024-09-01 15:20 | Outpatient (CLI) | payer BC, SELFPAY ==
[2024-09-01 14:28] LABS: Abs Immature Grans 0.02 10^3/uL (0.0-0.06); Absolute Basophil Count 0.05 10^3/uL (0.0-0.2); Absolute Eosinophil Count 0.17 10^3/uL (0.0-0.7); Absolute Lymphocyte Count 2.16 10^3/uL (1.2-3.4); Absolute Monocyte Count 0.52 10^3/uL (0.1-0.8); Absolute Neutrophil Count 5.58 10^3/uL (1.2-6.7); Basophils % 0.6 %; HCT 42.9 % (36.0-46.0); HGB 14.4 g/dL (11.2-15.7); Immature Grans % 0.2 %; Lymphocytes % 25.4 %; MCH 27.7 pg (27.0-33.0); MCHC 33.6 % (32.0-36.0); MCV 83 fL (80-95); Monocytes % 6.1 %; Neutrophils % 65.7 %; Platelet Count 304 10^3/uL (130-400); RDW 13.2 % (11.7-14.6); RDW-SD 39.5 fL
[2024-09-01 15:13] LABS: C-Reactive Protein 1.17 mg/dL (<or=0.5); Ferritin 215 ng/mL (8-252)
== END 2024-09-01 15:21 | disposition home or self-care (01) ==
LOC: LBO 15:21
PROVIDERS: PCP Nurse Practitioner Family; Visit Provider Surgery
DX: I83.899 Varicose veins of unspecified lower extremity with other complications (principal); I87.2 Venous insufficiency (chronic) (peripheral); I83.009 Varicose veins of unspecified lower extremity with ulcer of unspecified site; L97.909 Non-pressure chronic ulcer of unspecified part of unspecified lower leg with unspecified severity; Z68.41 Body mass index [BMI] 40.0-44.9, adult; R73.03 Prediabetes; L03.115 Cellulitis of right lower limb
CPT/HCPCS: 36415; 82728; 85025; 86140

== ENCOUNTER 2024-09-02 07:08 | Outpatient (RCR) | payer BC, SELFPAY ==
[2024-09-02] MEDS: levoFLOXacin 500 MG/100 ML BAG 100 MG IVPB (08:18)
[2024-09-02] MEDS: Normal Saline Flush 10 ML SYR IVP (08:19)
== END 2024-09-13 23:59 | disposition home or self-care (01) ==
LOC: INF 07:08
PROVIDERS: PCP Nurse Practitioner Family; Visit Provider Surgery
DX: L03.116 Cellulitis of left lower limb (principal)
CPT/HCPCS: 96365; J1956

== ENCOUNTER 2025-03-28 16:32 | Outpatient (REF) | payer BC, SELFPAY ==
[2025-03-28 20:09] LABS: HCT 40.8 % (36.0-46.0); HGB 13.5 g/dL (11.2-15.7); MCH 27.7 pg (27.0-33.0); MCHC 33.1 % (32.0-36.0); MCV 84 fL (80-95); MPV 9.8 fL (8.0-11.0); Platelet Count 284 10^3/uL (130-400); RBC 4.87 10^6/uL (3.93-5.22); RDW 13.2 % (11.7-14.6); RDW-SD 39.9 fL; WBC 7.32 10^3/uL (4.4-10.8)
[2025-03-28 20:21] LABS: ALT 24 U/L (14-59); AST 20 U/L (15-37); Albumin 4.0 g/dL (3.4-5.0); Alkaline Phosphatase 63 U/L (46-116); Anion Gap 10.9 mmol/L (3-11); BUN 22 mg/dL (7-18); Bilirubin, Total 0.5 mg/dL (0.2-1.0); CO2 27.1 mmol/L (21.0-32.0); Calcium 9.8 mg/dL (8.5-10.1); Chloride 100 mmol/L (98-107); Estimated GFR 103.98 (mL/min/1.73m2); Glucose 93 mg/dL (74-106); Potassium 3.6 mmol/L (3.5-5.1); Sodium 138 mmol/L (136-145); Total Protein 7.7 g/dL (6.4-8.2)
== END 2025-03-28 16:33 | disposition home or self-care (01) ==
LOC: NCHCN 16:32
PROVIDERS: PCP Nurse Practitioner Family; Visit Provider Nurse Practitioner Family
DX: L03.115 Cellulitis of right lower limb (principal)
CPT/HCPCS: 80053; 85027

== ENCOUNTER 2025-04-28 15:43 | Outpatient (REF) | payer BC, SELFPAY ==
--- NOTE | 2025-04-28 14:45 | PAPFT_PTH ---
PATIENT: Callie Perez LOC: [facility] U#:[id number] AGE/SX: 60/F ROOM: RE04/28/[address]: Tahmina Wells MD : [id number] BED: DIS: 04/28/2025 SPEC #: [id number] RECD: 04/28/25 16:36 STATUS: FLORIN REQ #: [id number] GABBY: 04/28/25 14:[address]: Tahmina Wells DEPT: [facility] Cytology RECD BY: Leah Polanco ENTERED: 04/28/25 16:36 SP TYPE: PAPFT CHARLY DR: TANESHA CROWLEY, AUSTYN Tissues: 1 - CX/ENDOCX FOR PAP SMEARS Procedures: PAP THIN PREP/UVM Screening HPV DNA PROBE Comments: [id number] (HPV 16 & 18/45)
== END 2025-04-28 15:44 | disposition home or self-care (01) ==
LOC: LBN 15:43
PROVIDERS: PCP Nurse Practitioner Family; Visit Provider Obstetrics & Gynecology
DX: Z12.4 Encounter for screening for malignant neoplasm of cervix (principal)
CPT/HCPCS: 88142; 87624

== ENCOUNTER 2025-06-26 02:10 | Outpatient (CLI) | payer BC, SELFPAY ==
--- NOTE | 2025-06-26 09:34 | DI.MAMMO_ITS ---
Exam(s) MAMMO SCREENING EXAM: MAMMO SCREENING CLINICAL HISTORY: screening,z12.31 TECHNIQUE: Mammograms were interpreted according to the usual protocol including computer analysis with CAD system, tomosynthesis and C-view imaging. COMPARISON: 2019 through 2023 FINDINGS: The breasts are composed of scattered fibroglandular densities, Breast Density category B. No suspicious masses or suspicious microcalcifications are seen. No skin thickening or abnormal axillary lymph nodes are seen. There has been no significant change from prior exams. IMPRESSION: BI-RADS Category 1, Negative mammogram Yearly screening mammography is recommended. Breast Density - Category B - There are scattered areas of fibroglandular density. Breast density Category C or D implies that the patient has dense breast tissue. Dense breast tissue can make it harder to find cancer on a mammogram. Dense breast tissue is also associated with an increased risk of breast cancer. This information about the result of the mammogram report was provided to the patient to raise their awareness. Use this report when you speak with the patient about their risks for breast cancer, which includes their family history. At that time, you may recommend additional screening tests (Ultrasound or MRI) as these tests may add significant information. A negative radiographic report should not delay biopsy if a dominant or clinically suspicious mass is present. Up to ten percent of cancers are not identified on mammography. A negative report may reinforce clinical impression. Adenosis and dense breasts may obscure an underlying neoplasm. False positive reports average 6 to 10%. Patient will receive a letter notifying them of these results.
== END 2025-06-26 02:30 ==
PROVIDERS: PCP Nurse Practitioner Family; Visit Provider Obstetrics & Gynecology
DX: Z12.31 Encounter for screening mammogram for malignant neoplasm of breast (principal); R92.323 Mammographic fibroglandular density, bilateral breasts
CPT/HCPCS: 77063; 77067

== ENCOUNTER 2025-08-09 06:55 | Day surgery (SDC) | payer BC, SELFPAY ==
[2025-08-09 07:10] VITALS: BP 135/95; PULSE 78; RESP 16; TEMP 36.4; O2SAT 95
[2025-08-09] MEDS: Lactated Ringers 1,000 ML 80 ML IV (07:54)
--- NOTE | 2025-08-09 07:59 | ANES.PREOP_ITS ---
General Info Date of Service Date Performed: 08/09/25 Height: 5 ft 11 in Weight: 125.1 kg Body Mass Index (BMI): 38.5 Surgical Procedure: Operation Date: 08/09/25 08:20 Proposed Procedure Side Surgeon p Colonoscopy Rianna Kyle MD Actual Procedure Side Surgeon p Colonoscopy Not Applicable Rianna Kyle MD Pre-Op Diagnosis Post-Op Diagnosis screening colonoscopy Meds Allergies and Home Medications Allergies Allergy/AdvReac Type Severity Reaction Status Date / Time No Known Allergies Allergy Verified 08/09/25 07:15 Home Medication ?Medication ?Instructions ?Recorded cholecalciferol (vitamin D3) 100 100 mcg PO DAILY 02/13 06/03 mcg (4,000 unit) tablet levonorgestrel (Mirena) 1 device intrauterine ONCE 0 03/12/20 cetirizine 10 mg capsule (All Day 10 mg PO DAILY PRN 0 10/31/21 Allergy (cetirizine)) chlorthalidone 25 mg tablet 25 mg PO DAILY 10/31/21 losartan 100 mg tablet 100 mg PO HS 10/31/21 inhalational spacing device #1 ea 09/01/23 (Aerochamber MV spacer) albuterol sulfate 90 mcg/actuation 2 puff inhalation Q 4H PRN 07/14/25 aerosol inhaler (Ventolin HFA) azelastine 137 mcg (0.1 %) nasal 1 spray intranasal BI D 07/14/25 spray citalopram 20 mg tablet 20 mg PO DAILY 07/14/25 potassium chloride 20 mEq 20 meq PO DAILY 07/14/25 tablet,extended release (K-Tab) bisacodyl 5 mg tablet,delayed 5 mg PO ONCE Colonoscopy Bowel 07/19/25 release Prep #4 tabs polyethylene glycol 3350 17 238 g PO ONCE #238 grams 1 09/18/24 gram/dose oral powder Current Visit Medications: Current Medications Generic Name Dose Route Start Last Admin Trade Name Freq PRN Reason Stop Dose Admin Ringer's Solution 1,000 mls @ 80 mls/hr 08/09/25 06:00 08/09/25 07:54 IV 08/09/25 23:59 80 mls/hr INFUSION KIKA Administration Sodium Chloride 0 ml 08/09/25 06:00 Normal Saline Flush 10 Ml Syr IV 08/09/25 23:59 PRN PRN Sodium Chloride 0 ml 08/09/25 06:00 Normal Saline 10 Ml Vial IJ 08/09/25 23:59 DIRECTED PRN Sterile Water 0 ml 08/09/25 06:00 Water,Injection,Sterile 10 Ml Vial IJ 08/09/25 23:59 DIRECTED PRN PFSH Active Problems Active Problems: Problem Status Onset Code Venous stasis dermatitis of both lower extremities Acute I87.2 Varicose veins with complications Acute I83.899 Depression Chronic F32.A BMI 40.0-44.9, adult Acute Z68.41 Vitamin D deficiency Acute E55.9 Prediabetes Acute R73.03 Hypertension Chronic I10 Migraine Chronic G43.909 Medical History Medical History Acute upper respiratory infection Acute rhinosinusitis Venous stasis ulcer RLE Pneumonia IUD surveillance (03/12/20) Mirena placed 2020 Sepsis Hyperplastic colon polyp Tubular adenoma of colon Serrated adenoma of colon Family history of breast cancer Sister in her 50s Allergic rhinitis Surgical History Surgical History Hx of prior ablation treatment R leg, for venous insufficiency History of colonoscopy (~07/2022) [place] teeth removed Tobacco Smoking/Tobacco Use Status: Former Tobacco Use Passive smoking exposure: No Alcohol Alcohol Intake: current Alcohol intake frequency: holidays/special occasions only Alcohol type: beer and wine Substance Use Substance use: Never Substance use type: does not use Details: alcohol: unknown Prental History History 2 Para 1 Hx # Term Pregnancies Multiple births Hx # Pregnancies Ectopic pregnancies AB induced Hx Number of Living Children AB spontaneous Past Pregnancies Del. Date GA/Weeks # Preg Succ Route Wgt Sex Labor Lgth Anesth esia Location [facility] 05/18/03 40 No Yes vaginal 3742.137 g Male [facility] Vital Signs and Lab Results Vital Signs Most Recent Vital Signs in EMR: Most Recent Vital Signs Temp Pulse Resp BP Pulse Ox 36.4 C L 78 16 135/95 H 95 08/09/25 07:10 08/09/25 07:10 08/09/25 07:10 08/09/25 07:10 08/09/25 07:10 Imaging and Studies Imaging and Studies Study information below may be from another EMR and interpreted by another provider. Please see original notes in EMR for more complete details. EKG Summary: 07/13/23: Exam: Resting ECG Reason for Exam: QTC prolongation Patient Location: I HR:76 bpm ECG Measurements Heart Rate 76 AXIS TX 160 P 37 QRSd 88 QRS 29 QT 392 T61 QTc 441 Conclusion Sinus rhythm...normal P axis, V-rate 50- 99 Low voltage, precordial leads...precordial leads <1.0mV Baseline wander in lead(s) I,II,aVR,aVL,aVF,V1,V2,V6 Otherwise normal ECG Pulmonary Function Summary: 01/09/21: Pulmonary Function Test Result Interpretation Spirometry: Mild obstructive airways disease, no bronchodilator response Lung Volumes: No evidence of restriction. Mild hyperinflation Diffusion Capacity: Mildly reduced even when corrected to alveolar volume Airway Pressure: Elevated Impression Mild obstructive airways disease with no significant bronchodilator response this is associated with mild hyperinflation and mild diffusion defect. There is elevated airways resistance Clinical Correlation therefore is recommended. Anesthesia Assessment and Plan Anesthesia History Personal History: No History of Anesthesia Complications Family History: No Family History of Anesthesia Complications Exercise Tolerance Exercise Tolerance: Metabolic Equivalents>4 Pertinent Negatives Pertinent Negatives: No Symptoms of GERD, No Major Cardiovascular Symptoms or Complaints and No Major Pulmonary Symptoms or Complaints Cardiac & Pulmonary Exam Cardiac Exam: Normal S1/S2 Heart Sounds Pulmonary Exam: Clear Bilateral Breath Sounds Implantable Cardiac Device Does patient have a Pacemaker or an ICD?: No Airway Exam Known Difficult Airway: No Mallampati Class: 3 Mouth Opening: Normal (> 3cm) Thyromental Distance: Greater than 3 cm Neck Range of Motion: Full ROM Neck Circumference: Thick Teeth Condition: Normal Dentition ASA Classification ASA Score: ASA 2 Emergency Case?: No NPO Status NPO Status: NPO Clears >2 hours, Solids >8 hours Anesthesia Plan Resuscitation Status: Full Code Anesthesia Technique: General Anesthesia Airway Planned: Natural Airway Monitors Used: Standard Monitors
[2025-08-09 08:00] VITALS: BMI 38.5
--- NOTE | 2025-08-09 08:15 | BOWEL_PTH ---
PATIENT: Callie Perez LOC: [facility] U#:[id number] AGE/SX: 60/F ROOM: RE08/09/[address]: Rianna Kyle : 1965 BED: DIS: 08/09/2025 SPEC #: [id number] RECD: 08/09/25 12:24 STATUS: FLORIN RE #: [id number] GABBY: 08/09/25 08:[address]: Rianna Kyle DEPT: Surgical Specimen RECD BY: Leah Polanco ENTERED: 08/09/25 12:25 SP TYPE: Bowel OTHR DR: TANESHA CROWLEY, AUSTYN Tissues: 1 - BIOPSY BOWEL 2 - BIOPSY BOWEL 3 - BIOPSY BOWEL Procedures: GROSS AND MICRO LEVEL 4 Comments: [id number]
[2025-08-09] MEDS: Endoscopic Tattoo 5 ML SYR IJ (08:21)
--- NOTE | 2025-08-09 08:47 | W.PM.DSUDISC ---
Date of service: 08/09/25 Discharge Plan Disposition Patient Disposition: Home Condition: Good Discharge Details Reason For Visit: Personal history of polyps Attending Provider: Rianna Kyle Primary Care Provider: TANESHA CROWLEY Recommendations for Follow Up Recommended tests to be ordered by follow up provider: Follow up pathology Home Meds and New Rx's Prescriptions: No Action cholecalciferol (vitamin D3) 100 mcg (4,000 unit) tablet 100 mcg PO DAILY Mirena 20 mcg/24 hours (5 yrs) 52 mg intrauterine device 1 device IY ONCE Rx Instructions: as a single dose bisacodyl 5 mg tablet,delayed release (DR/EC) 5 mg PO ONCE Qty: 4 0RF Rx Instructions: Per Colonoscopy bowel prep instructions polyethylene glycol 3350 17 gram/dose powder 238 g PO ONCE Qty: 238 0RF Rx Instructions: For Colonoscopy bowel prep, as directed by office (DME) Ekaterina MV Spacer See Rx Instructions .Route Qty: 1 0RF Rx Instructions: As directed losartan 100 mg tablet 100 mg PO HS chlorthalidone 25 mg tablet 25 mg PO DAILY All Day Allergy (cetirizine) 10 mg capsule 10 mg PO DAILY PRN citalopram 20 mg tablet 20 mg PO DAILY azelastine 137 mcg (0.1 %) spray,non-aerosol 1 spray intranasal BID Rx Instructions: administer into each nostril albuterol sulfate [Ventolin HFA] 90 mcg/actuation HFA aerosol inhaler 2 puff inhalation Q4H PRN potassium chloride [K-Tab] 20 mEq tablet extended release 20 meq PO DAILY Discharge Instructions Instructions: Diverticulosis Additional Instructions: Your procedure went well today. We did find one small polyp which was removed. We also found two other larger polyps which were biopsied. These biopsies will be sent to pathology and once the results return I will be in touch with you regarding next steps. You may have some blood in your stool initially given the location of the polyps. You also had evidence of diverticulosis throughout the entire colon. These are small outpouchings of the colon. Please contact the surgery office if you have any questions or concerns. 1. If tolerated, consume a soft, low fiber diet for 1-2 days. 2[address] Do not drive, drink alcohol, operate machinery, make critical decisions, or do activities that require coordination or balance for 24 hours. 3. Because air was put into your colon during the procedure, expelling air from your rectum (passing gas or farting) is normal. 4. You may not have a bowel movement for 1-3 days because of the colonoscopy prep. This is normal. 5. Go directly to the emergency room if you notice any of the following: Develop chills (warm to touch), or if you have a thermometer and your temperature is above 101 Difficulty breathing or difficultly swallowing Persistent vomiting Severe abdominal pain, other than gas cramps Severe chest pain Black, tarry stools Any bleeding ? exceeding one tablespoon 6. Call your physician if the site where your intravenous was started becomes red, swollen, painful, and warm to touch. 7. Your physician has reviewed your pre-procedure medications. Please continue to take those medications as previously ordered. You will be given specific information/education regarding any changes to your medications before leaving. Stand Alone Forms: Portal Information Activity:: Activity as Tolerated Diet:: As Tolerated Discharge Orders Discharge Orders: Discharge Order (Routine); Ordered 08/09/25 Ordered By: Rianna Kyle
[2025-08-09 08:49] VITALS: BP 123/69; PULSE 1; RESP 15; TEMP 36.2; O2SAT 95
--- NOTE | 2025-08-09 08:50 | W.COLOREPORT ---
Date of service: 08/09/25 Time of Service: 08:50 Colonoscopy Report Date of procedure: 08/09/25 Pre-op diagnosis general: Personal history of colon polyps Post-op diagnosis procedure note: same Procedure: Colonoscopy with polypectomy and biopsy Surgeon: Rianna Kyle Anesthesia Type: General:No Airway Estimated blood loss (mL): 3 Pathology: other (Biopsy at 20cm, Polypectomy at 70cm, Biopsy at 15cm) Complications: None Disposition: PACU Indications: Patient is a 60 yo female who presents for a surveillance colonoscopy given personal history of polyps. Prep: Miralax/Dulcolax Procedure Start Time: 08:07 Procedure End Time: 08:41 Retraction Time: 17 Findings: Large flat mass inside of diverticulum at 20cm. Biopsy performed and location marked with tattoo. Small polyp at 70cm removed with cold forceps. Additional area of potential polypoid lesion at 15cm biopsied. Evidence of pandiverticulosis. Procedure Description: The patient was brought to the endoscopy suite and placed in the left lateral decubitus position. After induction of IV sedation, a digital rectal exam was performed.. Digital exam was normal. The colonoscope was then passed to the cecum without difficulty. Cecal intubation was confirmed by the identification of the appendiceal orifice and the ileocecal valve. Upon withdrawing the colonoscope, all mucosal surfaces were inspected. There was some intermittent evidence of firm stool however the remainder of the prep was adequate. At 20cm inside of a large diverticulum there was a flat polypoid mass which was biopsied with cold forceps and tattoo performed. At 70cm there was a small polyp which was removed using cold forceps in its entirety. There was also an area of concern at 15cm that appeared polypoid and a cold forcep biopsy was performed. Specimen were retrieved for pathological analysis. There was also evidence of pandiverticulosis. Retroflexion in the rectum was unremarkable.The patient tolerated the procedure well with no complications. Postoperatively, the patient was transferred to the recovery room in stable condition. Beverly Bowel Prep Beverly Bowel Prep Right Colon: 3 Left Colon: 3 Transverse Colon: 3 Total Score: 9
--- NOTE | 2025-08-09 09:01 | W.ANESPOSTOP ---
Postoperative Evaluation Date, Time and Location Date Performed: 08/09/25 Time Performed: 08:50 Patient Location: Day Surgery Unit Vital Signs Most Recent Imported Vital Signs: Most Recent Vital Signs Temp Pulse Resp BP Pulse Ox 36.2 C L 1 L 15 123/69 95 08/09/25 08:49 08/09/25 08:49 08/09/25 08:49 08/09/25 08:49 08/09/25 08:49 Pain Score Most Recent Pain Score: Most Recent Pain Score Pain Level 0 08/09/25 08:49 Assessment Mental Status: Arousable with meaningful communication Airway and Respiratory Function: Patent airway with normal (patient baseline) respiratory exam Cardiovascular Function: Hemodynamically Stable Hydration Status: Adequately Hydrated Nausea & Vomiting: No Nausea or Vomiting Pain: Pt. Denies Any Pain Peripheral Nerve Block: Patient did not receive a nerve block
[2025-08-09 09:15] VITALS: BP 132/78; PULSE 69; RESP 16; TEMP 36.3; O2SAT 98
== END 2025-08-09 09:55 | disposition home or self-care (01) ==
PROVIDERS: PCP Nurse Practitioner Family; Visit Provider Student in an Organized Health Care Education/Training Program
PROC: 0DJD8ZZ Inspection of Lower Intestinal Tract, Via Natural or Artificial Opening Endoscopic (ICD-10-PCS; CPT 45378; principal; 2025-08-09 08:15)
DX: Z12.11 Encounter for screening for malignant neoplasm of colon (principal); D12.4 Benign neoplasm of descending colon; K57.30 Diverticulosis of large intestine without perforation or abscess without bleeding
CPT/HCPCS: 45380; 88305; J2704